=== PATIENT | female | born 1970 | race Caucasian/White ===

== ENCOUNTER 2020-06-12 05:11 | Inpatient (IN) | payer BC ==
[2020-06-12] MEDS ORDERED: ALBUTEROL HFA INHALER INHALATION STA (05:24)
[2020-06-12] MEDS ORDERED: ACETAMINOPHEN TAB 500 MG TAB PO STA (05:24)
[2020-06-12] MEDS ORDERED: DEXAMETHASONE SOD PHOSPHATE 10 MG/ML 1 ML VIAL IV STA (05:24)
[2020-06-12] MEDS ORDERED: SODIUM CHLORIDE 0.9% 1,000 ML IV STA (05:24)
[2020-06-12] MEDS ORDERED: KETOROLAC 15 MG/ML 1 ML VIAL IVP STA (05:24)
--- NOTE | 2020-06-12 05:26 | ED ---
SOB HPI - General Chief Complaint: Shortness of Breath Stated Complaint: COVID+,SOB Time Seen by Provider: 06/12/20 05:13 Source: patient, RN notes reviewed, old records reviewed Mode of arrival: wheelchair Limitations: no limitations - History of Present Illness Initial Comments: This is a 49-year-old female DF for evaluation. Patient severely short of breath arrival to the emergency department. Does have significant obesity diagnosis coronavirus last week coming with abdominal pain nausea vomiting diarrhea worsening shortness of breath exertional dyspnea. MD Complaint: shortness of breath, cough, pain with inspiration, anxiety -: week(s) Severity: moderate Severity scale (1-10): 6 Quality: aching Consistency: constant Improves With: rest Worsens With: exertion, movement Associated Symptoms: fever, cough Treatments Prior to Arrival: none - Related Data Home Medications Medication Instructions Recorded Confirmed Albuterol Inhaler [Ventolin Hfa 2 puff INHALATION RT-Q4H PRN 06/12/20 06/12/20 Inhaler] Ondansetron HCl [Zofran] 4 mg PO Q8H PRN 06/12/20 06/12/20 Previous Rx's Medication Instructions Recorded Dexamethasone [Decadron] 6 mg PO DAILY 7 Days #7 tablet 06/16/20 Allergies Allergy/AdvReac Type Severity Reaction Status Date / Time No Known Allergies Allergy Verified 06/12/20 06:52 Review of Systems ROS Statement: Those systems with pertinent positive or pertinent negative responses have been documented in the HPI. ROS Other: All systems not noted in ROS Statement are negative. Past Medical History Past Medical History: No Reported History History of Any Multi-Drug Resistant Organisms: None Reported Past Surgical History: Cholecystectomy Additional Past Surgical History / Comment(s): breast biopsy 2013 Past Psychological History: No Psychological Hx Reported Smoking Status: Never smoker Past Alcohol Use History: None Reported Past Drug Use History: None Reported - Past Family History Mother Family Medical History: Hyperlipidemia, Hypertension Father Family Medical History: Coronary Artery Disease (CAD), Myocardial Infarction ([place]) Additional Family Medical History / Comment(s): Father of a [place] at the age of 60yrs. General Exam Limitations: no limitations General appearance: anxious, in distress, obese Head exam: Present: atraumatic, normocephalic, normal inspection Eye exam: Present: normal appearance, PERRL, EOMI. Absent: scleral icterus, conjunctival injection, periorbital swelling ENT exam: Present: normal exam, mucous membranes moist Neck exam: Present: normal inspection. Absent: tenderness, meningismus, lymphadenopathy Respiratory exam: Present: normal lung sounds bilaterally. Absent: respiratory distress, wheezes, rales, rhonchi, stridor Cardiovascular Exam: Present: regular rate, normal rhythm, normal heart sounds. Absent: systolic murmur, diastolic murmur, rubs, gallop, clicks GI/Abdominal exam: Present: soft, normal bowel sounds. Absent: distended, tenderness, guarding, rebound, rigid Extremities exam: Present: normal inspection, full ROM, normal capillary refill. Absent: tenderness, pedal edema, joint swelling, calf tenderness Back exam: Present: normal inspection Neurological exam: Present: alert, oriented X3, CN II-XII intact Psychiatric exam: Present: normal affect, normal mood Skin exam: Present: warm, dry, intact, normal color. Absent: rash Course Vital Signs 06/12/20 06/12/20 06/12/20 05:19 06:40 06:41 Temperature 98.9 F Pulse Rate 91 85 Respiratory 24 20 Rate Blood Pressure 199/88 167/98 O2 Sat by Pulse 93 L 88 L 92 L Oximetry - Reevaluation(s) Reevaluation #1: Medical record is reviewed Patient symptoms are significantly improved here in the emergency department Patient family informed of results, questions answered Medical Decision Making - Medical Decision Making 49 female positive coronavirus positive hypoxia. Patient will be admitted for symptomatically therapy and treatment - Lab Data Result diagrams: 06/15/20 10:55 06/16/20 10:05 Lab Results 06/12/20 06/12/20 06/12/20 Range/Units 05:41 05:41 05:41 WBC 4.6 (3.8-10.6) k/uL RBC 4.50 (3.80-5.40) m/uL Hgb 13.3 (11.4-16.0) gm/dL Hct 38.4 (34.0-46.0) % MCV 85.3 (80.0-100.0) fL MCH 29.6 (25.0-35.0) pg MCHC 34.7 (31.0-37.0) g/dL RDW 13.2 (11.5-15.5) % Plt Count 209 (150-450) k/uL MPV 8.2 Neutrophils % 80 % Lymphocytes % 14 % Monocytes % 4 % Eosinophils % 0 % Basophils % 1 % Neutrophils # 3.7 (1.3-7.7) k/uL Lymphocytes # 0.6 L (1.0-4.8) k/uL Monocytes # 0.2 (0-1.0) k/uL Eosinophils # 0.0 (0-0.7) k/uL Basophils # 0.0 (0-0.2) k/uL PT 10.4 (9.0-12.0) sec INR 1.0 (<1.2) APTT 27.0 (22.0-30.0) sec Sodium 134 L (137-145) mmol/L Potassium 4.2 (3.5-5.1) mmol/L Chloride 98 (98-107) mmol/L Carbon Dioxide 25 (22-30) mmol/L Anion Gap 11 mmol/L BUN 9 (7-17) mg/dL Creatinine 0.69 (0.52-1.04) mg/dL Est GFR (CKD-EPI)AfAm >90 (>60 ml/min/1.73 sqM) Est GFR (CKD-EPI)NonAf >90 (>60 ml/min/1.73 sqM) Glucose 119 H (74-99) mg/dL Plasma Lactic Acid Álvaro (0.7-2.0) mmol/L Calcium 9.8 (8.4-10.2) mg/dL Magnesium 1.6 (1.6-2.3) mg/dL Total Bilirubin 0.5 (0.2-1.3) mg/dL AST 71 H (14-36) U/L ALT 46 H (4-34) U/L Alkaline Phosphatase 67 (38-126) U/L Lactate Dehydrogenase 1249 H (313-618) U/L C-Reactive Protein 75.9 H (<10.0) mg/L Total Protein 6.8 (6.3-8.2) g/dL Albumin 3.9 (3.5-5.0) g/dL 06/12/20 Range/Units 05:41 WBC (3.8-10.6) k/uL RBC (3.80-5.40) m/uL Hgb (11.4-16.0) gm/dL Hct (34.0-46.0) % MCV (80.0-100.0) fL MCH (25.0-35.0) pg MCHC (31.0-37.0) g/dL RDW (11.5-15.5) % Plt Count (150-450) k/uL MPV Neutrophils % % Lymphocytes % % Monocytes % % Eosinophils % % Basophils % % Neutrophils # (1.3-7.7) k/uL Lymphocytes # (1.0-4.8) k/uL Monocytes # (0-1.0) k/uL Eosinophils # (0-0.7) k/uL Basophils # (0-0.2) k/uL PT (9.0-12.0) sec INR (<1.2) APTT (22.0-30.0) sec Sodium (137-145) mmol/L Potassium (3.5-5.1) mmol/L Chloride (98-107) mmol/L Carbon Dioxide (22-30) mmol/L Anion Gap mmol/L BUN (7-17) mg/dL Creatinine (0.52-1.04) mg/dL Est GFR (CKD-EPI)AfAm (>60 ml/min/1.73 sqM) Est GFR (CKD-EPI)NonAf (>60 ml/min/1.73 sqM) Glucose (74-99) mg/dL Plasma Lactic Acid Álvaro 1.0 (0.7-2.0) mmol/L Calcium (8.4-10.2) mg/dL Magnesium (1.6-2.3) mg/dL Total Bilirubin (0.2-1.3) mg/dL AST (14-36) U/L ALT (4-34) U/L Alkaline Phosphatase (38-126) U/L Lactate Dehydrogenase (313-618) U/L C-Reactive Protein (<10.0) mg/L Total Protein (6.3-8.2) g/dL Albumin (3.5-5.0) g/dL - EKG Data -: EKG Interpreted by Me (EKG is sinus rhythm 85, HI 182 QRS 100 QTc 404) - Radiology Data Radiology results: report reviewed (Chest x-rays positive for covert and pneumonia), image reviewed Critical Care Time Critical Care Time: Yes Total Critical Care Time: 31 Disposition Clinical Impression: Coronavirus infection, Pneumonia due to COVID-19 virus, Hypoxia Disposition: ADMITTED IP TO THIS HOSP Condition: Fair Is patient prescribed a controlled substance at d/c from ED?: No
[2020-06-12] MEDS ORDERED: ONDANSETRON 4 MG/2 ML VIAL IVP STA (06:05)
[2020-06-12] MEDS: SODIUM CHLORIDE 0.9% 1,000 ML IV STA ×2 (06:06→09:28)
[2020-06-12 06:36] LABS: Basophils % (A) 1 %; Eosinophils % (A) 0 %; HCT 38.4 % (34.0-46.0); HGB 13.3 gm/dL (11.4-16.0); Lymphocytes # (A) 0.6 k/uL (1.0-4.8); Lymphocytes % (A) 14 %; MCH 29.6 pg (25.0-35.0); MCHC 34.7 g/dL (31.0-37.0); MCV 85.3 fL (80.0-100.0); Mean Platelet Volume 8.2; Monocytes # (A) 0.2 k/uL (0-1.0); Monocytes % (A) 4 %; Neutrophils # (A) 3.7 k/uL (1.3-7.7); Neutrophils % (A) 80 %; Platelet Count 209 k/uL (150-450); RDW 13.2 % (11.5-15.5); WBC 4.6 k/uL (3.8-10.6)
[2020-06-12] MEDS ORDERED: ONDANSETRON 4 MG/2 ML VIAL IVP PRN (06:39)
[2020-06-12] MEDS ORDERED: ACETAMINOPHEN TAB 325 MG TAB PO PRN (06:39)
[2020-06-12] MEDS ORDERED: IBUPROFEN 400 MG TAB PO PRN (06:39)
[2020-06-12] MEDS ORDERED: NALOXONE 0.4 MG/ML 1 ML VIAL IV PRN (06:39)
[2020-06-12] MEDS ORDERED: MORPHINE SULFATE 4 MG/ML SYRINGE IV PRN (06:39)
[2020-06-12] MEDS ORDERED: DEXTROSE 5%-0.45% NACL 1,000 ML IV SCH (06:45)
[2020-06-12 06:47] LABS: Prothrombin Time 10.4 sec (9.0-12.0)
[2020-06-12 06:52] LABS: ALT 46 U/L (4-34); AST 71 U/L (14-36); African American GFR (CKD) >90 (>60 ml/min/1.73 sqM); Albumin 3.9 g/dL (3.5-5.0); Alkaline Phosphatase 67 U/L (38-126); Anion Gap 11 mmol/L; Blood Urea Nitrogen 9 mg/dL (7-17); C Reactive Protein 75.9 mg/L (<10.0); Calcium 9.8 mg/dL (8.4-10.2); Carbon Dioxide 25 mmol/L (22-30); Chloride 98 mmol/L (98-107); Glucose 119 mg/dL (74-99); LDH 1249 U/L (313-618); Magnesium 1.6 mg/dL (1.6-2.3); Non-African American GFR(CKD) >90 (>60 ml/min/1.73 sqM); Potassium 4.2 mmol/L (3.5-5.1); Sodium 134 mmol/L (137-145); Total Bilirubin 0.5 mg/dL (0.2-1.3); Total Protein 6.8 g/dL (6.3-8.2)
--- NOTE | 2020-06-12 07:48 | XR ---
EXAMINATION TYPE: XR chest 1V portable DATE OF EXAM: 06/12/2020 COMPARISON: NONE HISTORY: Covid 19 pneumonia TECHNIQUE: Single frontal view of the chest is obtained. FINDINGS: Bilateral patchy airspace disease is present. No evident pneumothorax or pleural effusion. Cardiac mediastinal silhouette is within normal limits. IMPRESSION: Findings consistent with pneumonia.
[2020-06-12] MEDS: ALBUTEROL HFA INHALER INHALATION SCH ×3 (08:33→19:59)
[2020-06-12] MEDS: ENOXAPARIN 40 MG/0.4 ML SYRINGE SQ SCH (09:28)
--- NOTE | 2020-06-12 09:34 | P.CNPUL ---
History of Present Illness Consult date: 06/12/20 Reason for consult: dyspnea, pneumonia History of present illness: A 49-year-old female patient, presented to the emergency room because of shor tness of breath and cough. The patient initially developed symptoms on 06/03/2020. Noted the patient received the first dose of vaccination with Pfizer on 06/01/2020. Over the past 7 days, the patient was progressively getting worse. Her is infected and is doing well. Her 21-year-old son is also doing good. The patient is currently hypoxic and a pulse ox of 89% currently on 2 L of oxygen by nasal cannula. Chest x-ray showing bilateral pneumonia. She did recover some diarrhea. Otherwise her history is essentially negative. Labs are all within normal limits. The patient has some lymphopenia. Inflammatory markers are being ordered to be monitored. LDH currently is at 1249 and the CRP is at 45 and a d-dimer has not been checked. She is quite comfortable. No DVTs or pulmonary embolism. No chronic lung disease. Review of Systems Constitutional: Reports fatigue, Reports fever, Reports lethargy, Reports poor appetite Eyes: denies as per HPI, denies blurred vision, denies bulging eye, denies decreased vision, denies diplopia, denies discharge, denies dry eye, denies irritation, denies itching, denies pain, denies photophobia, denies loss of peripheral vision, denies loss of vision, denies tunnel vision/blind spots Ears: deny: decreased hearing, ear discharge, earache, tinnitus Ears, nose, mouth and throat: Reports as per HPI Breasts: absent: as per HPI, change in shape, gynecomastia, masses, nipple discharge, pain, skin changes, swelling Cardiovascular: Reports dyspnea on exertion Respiratory: Reports cough, Reports dyspnea Gastrointestinal: Reports as per HPI Genitourinary: Reports as per HPI Musculoskeletal: Reports as per HPI Musculoskeletal: absent: ankle pain, ankle stiffness, ankle swelling, as per HPI, elbow pain, elbow stiffness, elbow swelling, foot pain, foot stiffness, foot swelling, hand pain, hand stiffness, hand swelling, hip pain, hip stiffnes s, hip swelling, knee pain, knee stiffness, knee swelling, shoulder pain, shoulder stiffness, shoulder swelling, wrist pain, wrist stiffness, wrist swelling Integumentary: Reports as per HPI Neurological: Reports as per HPI, Reports weakness Psychiatric: Reports as per HPI Endocrine: Reports as per HPI Hematologic/Lymphatic: Reports as per HPI Allergic/Immunologic: Reports as per HPI Past Medical History Past Medical History: GERD/Reflux History of Any Multi-Drug Resistant Organisms: None Reported Past Surgical History: Cholecystectomy Additional Past Surgical History / Comment(s): R benign breast biopsy 2013 Past Anesthesia/Blood Transfusion Reactions: No Reported Reaction Past Psychological History: No Psychological Hx Reported Additional Psychological History / Comment(s): Pt resides with her spouse and son. She is independent. Smoking Status: Former smoker Past Alcohol Use History: None Reported Additional Past Alcohol Use History / Comment(s): Pt started smoking in 1985 and quit in 2014. Past Drug Use History: None Reported - Past Family History Mother Family Medical History: Hyperlipidemia, Hypertension Father Family Medical History: Coronary Artery Disease (CAD), Myocardial Infarction ([place]) Additional Family Medical History / Comment(s): Father of a [place] at the age of 60yrs. Medications and Allergies Home Medications Medication Instructions Recorded Confirmed Type Albuterol Inhaler [Ventolin Hfa 2 puff INHALATION RT-Q4H PRN 06/12/20 06/12/20 History Inhaler] Ondansetron HCl [Zofran] 4 mg PO Q8H PRN 06/12/20 06/12/20 History Allergies Allergy/AdvReac Type Severity Reaction Status Date / Time No Known Allergies Allergy Verified 06/12/20 06:52 Physical Exam Vitals: Vital Signs Temp Pulse Resp BP Pulse Ox 06/12/20 06:41 92 L 06/12/20 06:40 85 20 167/98 88 L 06/12/20 05:19 98.9 F 91 24 199/88 93 L Intake and Output 06/11/20 06/12/20 06/12/20 22:59 06:59 14:59 Other: Weight 145.15 kg Obesity with a BMI of 43, calm and comfortable Head exam was generally normal. There was no scleral icterus or corneal arcus. Mucous membranes were moist. Neck was supple and without jugular venous distension, thyromegaly, or carotid bruits. Carotids were easily palpable bilaterally. There was no adenopathy. Lungs were clear to auscultation and percussion, and with normal diaphragmatic excursion. No wheezes or rales were noted. Minimal amount of crackles can be appreciated the lung bases bilaterally. Cardiac exam revealed the PMI to be normally situated and sized. The rhythm was regular and no extrasystoles were noted during several minutes of auscultation. The first and second heart sounds were normal and physiologic splitting of the second heart sound was noted. There were no murmurs, rubs, clicks, or gallops. Abdominal exam revealed normal bowel sounds. The abdomen was soft, non-tender, and without masses, organomegaly, or appreciable enlargement of the abdominal aorta. Examination of the extremities revealed easily palpable radial, femoral and pedal pulses. There was no cyanosis, clubbing or edema. Examination of the skin revealed no evidence of significant rashes, suspicious appearing nevi or other concerning lesions. Neurologically, the patient is awake and alert and the patient does not have any focal neurological deficit. Cranial nerves are essentially intact. Results - Laboratory Findings CBC and BMP: 06/12/20 05:41 06/12/20 05:41 PT/INR, D-dimer PT 10.4 sec (9.0-12.0) 06/12/20 05:41 INR 1.0 (<1.2) 06/12/20 05:41 Abnormal lab findings: Abnormal Labs 06/12/20 06/12/20 05:41 05:41 Lymphocytes # 0.6 L Sodium 134 L Glucose 119 H AST 71 H ALT 46 H Lactate Dehydrogenase 1249 H C-Reactive Protein 75.9 H - Diagnostic Findings Chest x-ray: image reviewed Assessment and Plan Plan: 1 acute COVID 19 pneumonia. Symptoms started on 06/03/2020. Symptoms got worse over the past 7 days. The patient presented with worsening shortness of breath and cough and some hypoxemia 2 acute hypoxemic respiratory failure currently on 2 L of oxygen by nasal cannula 3 morbid obesity with a BMI of 43 4 elevated inflammatory markers secondary to above 5 lymphopenia secondary to above Plan Decadron 6 mg by mouth daily Remdesivir per protocol Lovenox 40 mg subcu daily IV fluids at 75 mL's an hour Oxygen at 2 L per minute is a cannula and titrate the flow to maintain saturation above 90% Multivitamin supplements Incentive spirometer Monitor diarrhea We'll continue to follow
[2020-06-12] MEDS: SODIUM CHLORIDE 0.9% 1,000 ML IV SCH (09:35)
[2020-06-12] MEDS: CHOLECALCIFEROL 25 MCG (1000 IU) TABLET PO SCH (09:40)
[2020-06-12] MEDS: ZINC SULFATE 220 MG CAP PO SCH (09:40)
[2020-06-12] MEDS: dexAMETHasone 2 MG TAB PO SCH (09:40)
[2020-06-12] MEDS: ASCORBIC ACID 500 MG TAB PO SCH ×2 (09:40→20:32)
[2020-06-12] MEDS ORDERED: REMDESIVIR 200 MG in SODIUM CHLORIDE 0.9% 250 ML IVPB ONE (10:00)
[2020-06-12 10:20] LABS: C Reactive Protein 76.7 mg/L (<10.0)
[2020-06-12 14:25] VITALS: BMI 43.4
--- NOTE | 2020-06-12 22:45 | P.HPIM ---
History of Present Illness H&P Date: 06/12/20 Chief Complaint: Shortness of breath Patient is a 49-year-old female with a long history of GERD and previous chest smoking presents to ER with complaints of shortness of breath. Patient states that she has been having symptoms since 05/31/2020. She received first dose of Pf izer COVID-19 vaccine on 06/01/2020. Patient came to ER due to worsening symptoms for the past 1 week. Patient states that her was infected with COVID-19 and is having mild symptoms. On admission patient was hypoxic at 88% on room air. Currently requiring 2 L oxygen via nasal cannula. Patient has been afebrile. Denied any complaints of chest pain. Patient states that she did have nausea and episodes of vomiting and diarrhea few days ago. No headache or dizziness or lightheadedness. Chest x-ray showed findings consistent with pneumonia. Laboratory data showed D-dimer 0.57, AST 71 ALT 46 LDH 1249, CRP 75.9 Review of Systems Constitutional: Patient denies any fever or chills . +generalized weakness and Malaise Abdomen: Patient does have nausea vomiting and diarrhea and no abdominal pain. Cardiovascular: Patient denies any chest pain . + short of breath no palpitations. Respiratory: patient denied any cough or sputum production. + shortness of breath Neurologic: Patient denied any numbness or tingling headache. Musculoskeletal: Patient denies any complaints of joint swelling or deformity. Skin: Negative Psychiatric: Negative Endocrine: No heat or cold intolerance. No recent weight gain. Genitourinary: No dysuria or hematuria. All other 14 point ROS negative except the above Past Medical History Past Medical History: GERD/Reflux Additional Past Medical History / Comment(s): Pt tested covid + on 06/05/20 at [facility] de[facility]. History of Any Multi-Drug Resistant Organisms: None Reported Past Surgical History: Cholecystectomy Additional Past Surgical History / Comment(s): R benign breast biopsy 2013 Past Anesthesia/Blood Transfusion Reactions: No Reported Reaction Past Psychological History: No Psychological Hx Reported Additional Psychological History / Comment(s): Pt resides with her spouse and son. She is independent. Smoking Status: Former smoker Past Alcohol Use History: None Reported Additional Past Alcohol Use History / Comment(s): Pt started smoking in 1985 and quit in 2014. Past Drug Use History: None Reported - Past Family History Mother Family Medical History: Hyperlipidemia, Hypertension Father Family Medical History: Coronary Artery Disease (CAD), Myocardial Infarction ([place]) Additional Family Medical History / Comment(s): Father of a [place] at the age of 60yrs. Medications and Allergies Home Medications Medication Instructions Recorded Confirmed Type Albuterol Inhaler [Ventolin Hfa 2 puff INHALATION RT-Q4H PRN 06/12/20 06/12/20 History Inhaler] Ondansetron HCl [Zofran] 4 mg PO Q8H PRN 06/12/20 06/12/20 History Allergies Allergy/AdvReac Type Severity Reaction Status Date / Time No Known Allergies Allergy Verified 06/12/20 06:52 Physical Exam Vitals: Vital Signs Temp Pulse Resp BP Pulse Ox 06/12/20 06:41 92 L 06/12/20 06:40 85 20 167/98 88 L 06/12/20 05:19 98.9 F 91 24 199/88 93 L Intake and Output 06/11/20 06/12/20 06/12/20 22:59 06:59 14:59 Other: Weight 145.15 kg 145.15 kg PHYSICAL EXAMINATION: Patient is lying in the bed comfortably, no acute distress, awake alert and oriented.. HEENT: Normocephalic. Neck is supple. Pupils reactive. Nostrils clear. Oral cavity is moist. Ears reveal no drainage. Neck reveals no JVD, carotid bruits, or thyromegaly. CHEST EXAMINATION: Trachea is central. Symmetrical expansion. Lung esparza clear to auscultation and percussion. CARDIAC: Normal S1, S2 with no gallops. No murmurs ABDOMEN: Soft. Bowel sounds normal. No organomegaly. No abdominal bruits. Extremities: reveal no edema. No clubbing or cyanosis Neurologically awake, alert, oriented x3 with well-coordinated movements. No focal deficits noted Skin: No rash or skin lesions. Psychiatric: Coperative. Nonsuicidal Musculoskeletal: No joint swelling or deformity. Normal range of motion. Results CBC & Chem 7: 06/12/20 05:41 06/12/20 05:41 Labs: Abnormal Lab Results - Last 24 Hours (Table) 06/12/20 06/12/20 Range/Units 05:41 05:41 Lymphocytes # 0.6 L (1.0-4.8) k/uL Sodium 134 L (137-145) mmol/L Glucose 119 H (74-99) mg/dL AST 71 H (14-36) U/L ALT 46 H (4-34) U/L Lactate Dehydrogenase 1249 H (313-618) U/L C-Reactive Protein 75.9 H (<10.0) mg/L Thrombosis Risk Factor Assmnt - DVT/VTE Prophylaxis DVT/VTE Prophylaxis: Pharmacologic Prophylaxis ordered - Choose All That Apply Any of the Below Risk Factors Present?: Yes Each Factor Represents 1 point: Age 41-60 years, Obesity (BMI >25), Serious lung disease incl. pneumonia (< 1month) Other Risk Factors: No Other congenital or acquired thrombophilia - If yes, enter type in comment: No Thrombosis Risk Factor Assessment Total Risk Factor Score: 3 Thrombosis Risk Factor Assessment Level: Moderate Risk Assessment and Plan Assessment: Acute hypoxic respiratory failure requiring 2 L oxygen via nasal cannula Acute COVID-19 pneumonia GERD Elevated inflammatory markers and lymphopenia secondary to COVID-19 pneumonia DVT prophylaxis with Lovenox subcu Plan: Patient will be continued on oxygen supplementation, dexamethasone 6 mg daily and Lovenox 40 mg subcu daily. Patient has been having symptoms for the past 7 days. Was started on remdesivir course. Pulmonary is on board. Continue with multivitamins and follow-up closely. Titrate down FiO2 to room air. Time with Patient: Greater than 30
[2020-06-13] MEDS: ALBUTEROL HFA INHALER INHALATION SCH ×5 (03:07→20:12)
[2020-06-13] MEDS: SODIUM CHLORIDE 0.9% 1,000 ML IV SCH ×3 (08:30→12:42)
--- NOTE | 2020-06-13 08:31 | XR ---
EXAMINATION TYPE: XR chest 1V portable DATE OF EXAM: 06/13/2020 CLINICAL HISTORY: Difficulty breathing and covid-19 progress study. TECHNIQUE: Single AP portable upright view of the chest is obtained. COMPARISON: Chest x-ray from one day earlier FINDINGS: Worsening bilateral multifocal opacities. Cardiac silhouette size is stable and within nor mal limits. Osseous structures are intact. IMPRESSION: Worsening bilateral multifocal opacities consistent with worsening covid-19 infection.
[2020-06-13 08:33] LABS: African American GFR (CKD) >90 (>60 ml/min/1.73 sqM); Anion Gap 6 mmol/L; Blood Urea Nitrogen 14 mg/dL (7-17); C Reactive Protein 61.2 mg/L (<10.0); Calcium 8.9 mg/dL (8.4-10.2); Carbon Dioxide 27 mmol/L (22-30); Chloride 105 mmol/L (98-107); Glucose 147 mg/dL (74-99); LDH 1143 U/L (313-618); Non-African American GFR(CKD) >90 (>60 ml/min/1.73 sqM); Potassium 4.5 mmol/L (3.5-5.1); Sodium 138 mmol/L (137-145)
[2020-06-13] MEDS: ENOXAPARIN 40 MG/0.4 ML SYRINGE SQ SCH (08:38)
[2020-06-13] MEDS: CHOLECALCIFEROL 25 MCG (1000 IU) TABLET PO SCH (08:38)
[2020-06-13] MEDS: ASCORBIC ACID 500 MG TAB PO SCH ×2 (08:38→20:59)
[2020-06-13] MEDS: dexAMETHasone 2 MG TAB PO SCH (08:38)
[2020-06-13] MEDS: ZINC SULFATE 220 MG CAP PO SCH (08:39)
--- NOTE | 2020-06-13 10:38 | P.PN ---
Subjective Progress Note Date: 06/13/20 A 49-year-old female patient, presented to the emergency room because of shortness of breath and cough. The patient initially developed symptoms on 06/03/2020. Noted the patient received the first dose of vaccination with [employer] on 06/01/2020. Over the past 7 days, the patient was progressively getti ng worse. Her is infected and is doing well. Her 21-year-old son is also doing good. The patient is currently hypoxic and a pulse ox of 89% currently on 2 L of oxygen by nasal cannula. Chest x-ray showing bilateral pneumonia. She did recover some diarrhea. Otherwise her history is essentially negative. Labs are all within normal limits. The patient has some lymphopenia. Inflammatory markers are being ordered to be monitored. LDH currently is at 1249 and the CRP is at 45 and a d-dimer has not been checked. She is quite comfortable. No DVTs or pulmonary embolism. No chronic lung disease. 06/13/2020 the patient is being seen for a follow-up. The patient is currently on Decadron and Remdesivir #2. No complaints. D-dimer is at 0.4, LDH level is 1143, CRP is down to 61. She is afebrile. She remains on 2 liters oxygen by nasal cannula. Nevertheless, the chest x-ray showing interval progression with worsening in the peripheral infiltrates on the right lung and some worsening of the left also. She has cough and she denies having any worsening in her breathing. Objective - Vital Signs Vital signs: Vital Signs Temp 98.6 F 06/13/20 07:33 Pulse 69 06/13/20 08:00 Resp 18 06/13/20 08:00 BP 138/70 06/13/20 07:33 Pulse Ox 90 L 06/13/20 07:33 Intake & Output 06/12/20 06/13/20 06/13/20 18:59 06:59 18:59 Intake Total 850 1400 240 Balance 850 1400 240 Weight 145.15 kg Intake: Intake, IV Titration 850 900 Amount Remdesivir 200 mg In 250 Sodium Chloride 0.9% 250 ml @ 250 mls/hr IVPB ONCE ONE Rx#:[id number] Sodium Chloride 0.9% 1, 600 900 000 ml @ 75 mls/hr IV . [id number] [facility] Rx#:[id number] Oral 500 240 Other: Voiding Method Toilet # Voids 4 3 1 - Exam Obesity with a BMI of 43, calm and comfortable Head exam was generally normal. There was no scleral icterus or corneal arcus. Mucous membranes were moist. Neck was supple and without jugular venous distension, thyromegaly, or carotid bruits. Carotids were easily palpable bilaterally. There was no adenopathy. Lungs were clear to auscultation and percussion, and with normal diaphragmatic excursion. No wheezes or rales were noted. Minimal amount of crackles can be appreciated the lung bases bilaterally. Cardiac exam revealed the PMI to be normally situated and sized. The rhythm was regular and no extrasystoles were noted during several minutes of auscultation. The first and second heart sounds were normal and physiologic splitting of the second heart sound was noted. There were no murmurs, rubs, clicks, or gallops. Abdominal exam revealed normal bowel sounds. The abdomen was soft, non-tender, and without masses, organomegaly, or appreciable enlargement of the abdominal aorta. Examination of the extremities revealed easily palpable radial, femoral and pedal pulses. There was no cyanosis, clubbing or edema. Examination of the skin revealed no evidence of significant rashes, suspicious appearing nevi or other concerning lesions. Neurologically, the patient is awake and alert and the patient does not have any focal neurological deficit. Cranial nerves are essentially intact. - Labs CBC & Chem 7: 06/12/20 05:41 06/13/20 07:21 Labs: Abnormal Lab Results - Last 24 Hours (Table) 06/13/20 Range/Units 07:21 Glucose 147 H (74-99) mg/dL Lactate Dehydrogenase 1143 H (313-618) U/L C-Reactive Protein 61.2 H (<10.0) mg/L Assessment and Plan Plan: 1 acute COVID 19 pneumonia. Symptoms started on 06/03/2020. Symptoms got worse over the past 7 days. The patient presented with worsening shortness of breath and cough and some hypoxemia. The patient is currently on a combination of Decadron and Remdesivir day #2 and the patient is showing some interval worsening in her chest x-ray findings. Clinically stable on 2 L of oxygen by nasal cannula. 2 acute hypoxemic respiratory failure currently on 2 L of oxygen by nasal can nula 3 morbid obesity with a BMI of 43 4 elevated inflammatory markers secondary to above 5 lymphopenia secondary to above Plan Decadron 6 mg by mouth daily Remdesivir per protocol day #2 Give the patient unit of convalescent plasma There is interval worsening in the chest x-ray findings. I'm going to repeat a chest x-ray tomorrow Lovenox 40 mg subcu daily IV fluids at 75 mL's an hour Oxygen at 2 L per minute is a cannula and titrate the flow to maintain saturation above 90% Multivitamin supplements Incentive spirometer Monitor diarrhea We'll continue to follow
[2020-06-13] MEDS: REMDESIVIR 100 MG in SODIUM CHLORIDE 0.9% 250 ML IVPB SCH (11:17)
--- NOTE | 2020-06-14 00:17 | P.PN ---
Subjective Progress Note Date: 06/13/20 Principal diagnosis: Acute hypoxic respiratory failure requiring 2 L oxygen via nasal cannula Acute COVID-19 pneumonia Patient is a 49-year-old female with a long history of GERD and previous chest smoking presents to ER with complaints of shortness of breath. Patient states that she has been having symptoms since 05/31/2020. She received first dose of [employer] COVID-19 vaccine on 06/01/2020. Patient came to ER due to worsening symptoms for the past 1 week. Patient states that her was infected with COVID-19 and is having mild symptoms. On admission patient was hypoxic at 88% on room air. Currently requiring 2 L oxygen via nasal cannula. Patient has been afebrile. Denied any complaints of chest pain. Patient states that she did have nausea and episodes of vomiting and diarrhea few days ago. No headache or dizziness or lightheadedness. Chest x-ray showed findings consistent with pneumonia. Laboratory data showed D-dimer 0.57, AST 71 ALT 46 LDH 1249, CRP 75.9 06/13/2020 Patient is currently lying in the bed comfortably., No complaints of chest pain. Shortness of breath with ambulation. Denies any fever or chills. No nausea vomiting. Diarrhea improved. Patient is being continued on remdesivir day 2, dexamethasone and multivitamins and Lovenox. Laboratory data showed D-dimer level is 0.43 and LDH 1143 and CRP 61.2. Chest x-ray showed worsening bilateral multifocal opacities consistent with worsening COVID-19 infection. Will reduce IV fluids to 20 cc/h. Pulmonary is on board. Current medications reviewed. Objective - Vital Signs Vital signs: Vital Signs Temp 97.8 F 06/13/20 16:52 Pulse 71 06/13/20 16:52 Resp 18 06/13/20 16:52 BP 118/67 06/13/20 16:52 Pulse Ox 92 L 06/13/20 16:52 Intake & Output 06/13/20 06/13/20 06/14/20 06:59 18:59 06:59 Intake Total 1400 1010 Balance 1400 1010 Intake: Intake, IV Titration 900 Amount Sodium Chloride 0.9% 1, 900 000 ml @ 75 mls/hr IV . [id number] [facility] Rx#:[id number] Oral 500 720 Blood Product 290 Ffp Convalescent Plasma 290 Cpd Unit [id number] Other: Voiding Method Toilet # Voids 3 1 - Exam PHYSICAL EXAMINATION: Patient is lying in the bed comfortably, no acute distress, awake alert and oriented.. HEENT: Normocephalic. Neck is supple. Pupils reactive. Nostrils clear. Oral cavity is moist. Ears reveal no drainage. Neck reveals no JVD, carotid bruits, or thyromegaly. CHEST EXAMINATION: Trachea is central. Symmetrical expansion. Lung esparza clear to auscultation and percussion. CARDIAC: Normal S1, S2 with no gallops. No murmurs ABDOMEN: Soft. Bowel sounds normal. No organomegaly. No abdominal bruits. Extremities: reveal no edema. No clubbing or cyanosis Neurologically awake, alert, oriented x3 with well-coordinated movements. No focal deficits noted Skin: No rash or skin lesions. Psychiatric: Coperative. Nonsuicidal Musculoskeletal: No joint swelling or deformity. Normal range of motion. - Labs CBC & Chem 7: 06/12/20 05:41 06/13/20 07:21 Labs: Abnormal Lab Results - Last 24 Hours (Table) 06/13/20 Range/Units 07:21 Glucose 147 H (74-99) mg/dL Lactate Dehydrogenase 1143 H (313-618) U/L C-Reactive Protein 61.2 H (<10.0) mg/L Assessment and Plan Assessment: Acute hypoxic respiratory failure requiring 2 L oxygen via nasal cannula Acute COVID-19 pneumonia GERD Elevated inflammatory markers and lymphopenia secondary to COVID-19 pneumonia DVT prophylaxis with Lovenox subcu Plan: Patient will be continued on oxygen supplementation, dexamethasone 6 mg daily and Lovenox 40 mg subcu daily. Patient has been having symptoms for the past 7 days. Was started on remdesivir course. Pulmonary is on board. Continue with multivitamins and follow-up closely. Titrate down FiO2 to room air. Time with Patient: Greater than 30
--- NOTE | 2020-06-14 08:02 | XR ---
EXAMINATION TYPE: XR chest 1V portable DATE OF EXAM: 06/14/2020 CLINICAL HISTORY: Difficulty breathing progress study. TECHNIQUE: Single AP portable upright view of the chest is obtained. COMPARISON: Chest x-ray from one and 2 days earlier FINDINGS: Persistent bilateral multifocal opacities. Continued interval progression with more conflu ent appearance in the central left upper to midlung on current study. Cardiac silhouette size is stab le and upper limits of normal. Osseous structures are intact. IMPRESSION: Continued Worsening bilateral multifocal opacities consistent with covid-19 infection pr ogression.
[2020-06-14] MEDS: ALBUTEROL HFA INHALER INHALATION SCH ×3 (08:05→20:39)
[2020-06-14] MEDS: dexAMETHasone 2 MG TAB PO SCH (09:24)
[2020-06-14] MEDS: ASCORBIC ACID 500 MG TAB PO SCH ×2 (09:24→22:00)
[2020-06-14] MEDS: ENOXAPARIN 40 MG/0.4 ML SYRINGE SQ SCH (09:24)
[2020-06-14] MEDS: CHOLECALCIFEROL 25 MCG (1000 IU) TABLET PO SCH (09:24)
[2020-06-14] MEDS: ZINC SULFATE 220 MG CAP PO SCH (09:24)
[2020-06-14] MEDS: REMDESIVIR 100 MG in SODIUM CHLORIDE 0.9% 250 ML IVPB SCH (09:25)
--- NOTE | 2020-06-14 10:10 | P.PN ---
Subjective Progress Note Date: 06/14/20 A 49-year-old female patient, presented to the emergency room because of shortness of breath and cough. The patient initially developed symptoms on 06/03/2020. Noted the patient received the first dose of vaccination with Pfizer on 06/01/2020. Over the past 7 days, the patient was progressively getti ng worse. Her is infected and is doing well. Her 21-year-old son is also doing good. The patient is currently hypoxic and a pulse ox of 89% currently on 2 L of oxygen by nasal cannula. Chest x-ray showing bilateral pneumonia. She did recover some diarrhea. Otherwise her history is essentially negative. Labs are all within normal limits. The patient has some lymphopenia. Inflammatory markers are being ordered to be monitored. LDH currently is at 1249 and the CRP is at 45 and a d-dimer has not been checked. She is quite comfortable. No DVTs or pulmonary embolism. No chronic lung disease. 06/13/2020 the patient is being seen for a follow-up. The patient is currently on Decadron and Remdesivir #2. No complaints. D-dimer is at 0.4, LDH level is 1143, CRP is down to 61. She is afebrile. She remains on 2 liters oxygen by nasal cannula. Nevertheless, the chest x-ray showing interval progression with worsening in the peripheral infiltrates on the right lung and some worsening of the left also. She has cough and she denies having any worsening in her breathing. On 4 07/14/2020, the patient remains on 2 L of oxygen by nasal cannula. Doing essentially the same as yesterday. She is on 2 L of oxygen by nasal cannula and the lowest pulse ox is been 87-88%. Her inflammatory markers from today shows a d-dimer of 0.4, LDH is still elevated at 1143 and the CRP is also at 61. No fever. No chills. Continues to have cough. Using incentive spirometer. She is on Decadron and she is also on day #3 of Remdesivir. Clinically she is feeling better and she feels that her breathing is improved compared to yesterday. Objective - Vital Signs Vital signs: Vital Signs Temp 98.1 F 06/14/20 08:00 Pulse 63 06/14/20 08:00 Resp 16 06/14/20 08:00 BP 148/74 06/14/20 08:00 Pulse Ox 88 L 06/14/20 08:05 Intake & Output 06/13/20 06/14/20 06/14/20 18:59 06:59 18:59 Intake Total 1010 400 Balance 1010 400 Intake: Oral 720 400 Blood Product 290 Ffp Convalescent Plasma 290 Cpd Unit [id number] Other: Voiding Method Toilet # Voids 1 2 - Exam Obesity with a BMI of 43, calm and comfortable Head exam was generally normal. There was no scleral icterus or corneal arcus. Mucous membranes were moist. Neck was supple and without jugular venous distension, thyromegaly, or carotid bruits. Carotids were easily palpable bilaterally. There was no adenopathy. Lungs were clear to auscultation and percussion, and with normal diaphragmatic excursion. No wheezes or rales were noted. Minimal amount of crackles can be appreciated the lung bases bilaterally. Cardiac exam revealed the PMI to be normally situated and sized. The rhythm was regular and no extrasystoles were noted during several minutes of auscultation. The first and second heart sounds were normal and physiologic splitting of the second heart sound was noted. There were no murmurs, rubs, clicks, or gallops. Abdominal exam revealed normal bowel sounds. The abdomen was soft, non-tender, and without masses, organomegaly, or appreciable enlargement of the abdominal aorta. Examination of the extremities revealed easily palpable radial, femoral and pedal pulses. There was no cyanosis, clubbing or edema. Examination of the skin revealed no evidence of significant rashes, suspicious appearing nevi or other concerning lesions. Neurologically, the patient is awake and alert and the patient does not have any focal neurological deficit. Cranial nerves are essentially intact. - Labs CBC & Chem 7: 06/12/20 05:41 06/13/20 07:21 Assessment and Plan Plan: 1 acute COVID 19 pneumonia. Symptoms started on 06/03/2020. Symptoms got worse over the past 7 days. The patient presented with worsening shortness of breath and cough and some hypoxemia. The patient is currently on a combination of Decadron and Remdesivir day #3 and the patient is showing some interval worsening in her chest x-ray findings. Clinically stable on 2 L of oxygen by nasal cannula. The patient also received a unit of convalescent plasma. Her chest x-ray still stable and the patient has diffuse mild bilateral pulmonary infiltrates, findings are stable compared to yesterday. Clinically however, the patient is feeling better. 2 acute hypoxemic respiratory failure currently on 2 L of oxygen by nasal cannula 3 morbid obesity with a BMI of 43 4 elevated inflammatory markers secondary to above 5 lymphopenia secondary to above Plan Decadron 6 mg by mouth daily Remdesivir per protocol day #3 Give the patient unit of convalescent plasma The repeat chest x-ray showing diffuse bilateral pulmonary infiltrates, essentially stable compared to yesterday Lovenox 40 mg subcu daily IV fluids at KVO Oxygen at 2 L per minute is a cannula and titrate the flow to maintain saturation above 90% Multivitamin supplements Incentive spirometer Monitor diarrhea and this has subsided. We'll continue to follow
[2020-06-14] MEDS: SODIUM CHLORIDE 0.9% 1,000 ML IV SCH (11:01)
[2020-06-14 12:14] LABS: C Reactive Protein 30.6 mg/L (<10.0)
--- NOTE | 2020-06-14 20:33 | P.PN ---
Subjective Progress Note Date: 06/14/20 Principal diagnosis: Acute hypoxic respiratory failure requiring 2 L oxygen via nasal cannula Acute COVID-19 pneumonia Patient is a 49-year-old female with a long history of GERD and previous chest smoking presents to ER with complaints of shortness of breath. Patient states that she has been having symptoms since 05/31/2020. She received first dose of [employer] COVID-19 vaccine on 06/01/2020. Patient came to ER due to worsening symptoms for the past 1 week. Patient states that her was infected with COVID-19 and is having mild symptoms. On admission patient was hypoxic at 88% on room air. Currently requiring 2 L oxygen via nasal cannula. Patient has been afebrile. Denied any complaints of chest pain. Patient states that she did have nausea and episodes of vomiting and diarrhea few days ago. No headache or dizziness or lightheadedness. Chest x-ray showed findings consistent with pneumonia. Laboratory data showed D-dimer 0.57, AST 71 ALT 46 LDH 1249, CRP 75.9 06/13/2020 Patient is currently lying in the bed comfortably., No complaints of chest pain. Shortness of breath with ambulation. Denies any fever or chills. No nausea vomiting. Diarrhea improved. Patient is being continued on remdesivir day 2, dexamethasone and multivitamins and Lovenox. Laboratory data showed D-dimer level is 0.43 and LDH 1143 and CRP 61.2. Chest x-ray showed worsening bilateral multifocal opacities consistent with worsening COVID-19 infection. Will reduce IV fluids to 20 cc/h. Pulmonary is on board. 06/14/2020 Patient is currently sitting in the chair comfortably. Patient states that her breathing is better today. Currently on oxygen at 2 L via nasal cannula and saturating at 88 to 92%. Laboratory data showed D-dimer is 0.58 and LDH 1362 and CRP 30.6 trending down. Patient is being continued on remdesivir day 3 and also on Decadron. Continued on multivitamins. Patient is tolerating oral diet. IV fluids at decreased rate. Current medications reviewed. Objective - Vital Signs Vital signs: Vital Signs Temp 98.2 F 06/14/20 15:27 Pulse 72 06/14/20 15:27 Resp 16 06/14/20 15:27 BP 141/79 06/14/20 15:27 Pulse Ox 92 L 04/15/21 15:27 Intake & Output 06/13/20 06/14/20 06/14/20 18:59 06:59 18:59 Intake Total 1010 400 Balance 1010 400 Intake: Oral 720 400 Blood Product 290 Ffp Convalescent Plasma 290 Cpd Unit [id number] Other: Voiding Method Toilet # Voids 1 2 - Exam PHYSICAL EXAMINATION: Patient is lying in the bed comfortably, no acute distress, awake alert and oriented.. HEENT: Normocephalic. Neck is supple. Pupils reactive. Nostrils clear. Oral cavity is moist. Ears reveal no drainage. Neck reveals no JVD, carotid bruits, or thyromegaly. CHEST EXAMINATION: Trachea is central. Symmetrical expansion. Lung esparza clear to auscultation and percussion. CARDIAC: Normal S1, S2 with no gallops. No murmurs ABDOMEN: Soft. Bowel sounds normal. No organomegaly. No abdominal bruits. Extremities: reveal no edema. No clubbing or cyanosis Neurologically awake, alert, oriented x3 with well-coordinated movements. No focal deficits noted Skin: No rash or skin lesions. Psychiatric: Coperative. Nonsuicidal Musculoskeletal: No joint swelling or deformity. Normal range of motion. - Labs CBC & Chem 7: 06/12/20 05:41 06/13/20 07:21 Labs: Abnormal Lab Results - Last 24 Hours (Table) 06/14/20 Range/Units 09:19 Lactate Dehydrogenase 1362 H (313-618) U/L C-Reactive Protein 30.6 H (<10.0) mg/L Assessment and Plan Assessment: Acute hypoxic respiratory failure requiring 2 L oxygen via nasal cannula Acute COVID-19 pneumonia GERD Elevated inflammatory markers and lymphopenia secondary to COVID-19 pneumonia DVT prophylaxis with Lovenox subcu Plan: Patient will be continued on oxygen supplementation, dexamethasone 6 mg daily and Lovenox 40 mg subcu daily. Patient has been having symptoms for the past 7 days. c/w remdesivir course. Pulmonary is on board. Continue with multivitamins and follow-up closely. Titrate down FiO2 to room air. Time with Patient: Greater than 30
[2020-06-15] MEDS: dexAMETHasone 2 MG TAB PO SCH (08:26)
[2020-06-15] MEDS: ZINC SULFATE 220 MG CAP PO SCH (08:26)
[2020-06-15] MEDS: CHOLECALCIFEROL 25 MCG (1000 IU) TABLET PO SCH (08:26)
[2020-06-15] MEDS: ASCORBIC ACID 500 MG TAB PO SCH ×2 (08:27→21:00)
[2020-06-15] MEDS: ALBUTEROL HFA INHALER INHALATION SCH ×3 (08:58→21:20)
[2020-06-15] MEDS: REMDESIVIR 100 MG in SODIUM CHLORIDE 0.9% 250 ML IVPB SCH (10:09)
[2020-06-15] MEDS: ENOXAPARIN 40 MG/0.4 ML SYRINGE SQ SCH (10:10)
--- NOTE | 2020-06-15 11:23 | P.PN ---
Subjective Progress Note Date: 06/15/20 A 49-year-old female patient, presented to the emergency room because of shortness of breath and cough. The patient initially developed symptoms on 06/03/2020. Noted the patient received the first dose of vaccination with Pfizer on 06/01/2020. Over the past 7 days, the patient was progressively getting worse. Her is infected and is doing well. Her 21-year-old son is also doing good. The patient is currently hypoxic and a pulse ox of 89% currently on 2 L of oxygen by nasal cannula. Chest x-ray showing bilateral pneumonia. She did recover some diarrhea. Otherwise her history is essentially negative. Labs are all within normal limits. The patient has some lymphopenia. Inflammatory markers are being ordered to be monitored. LDH currently is at 1249 and the CRP is at 45 and a d-dimer has not been checked. She is quite comfortable. No DVTs or pulmonary embolism. No chronic lung disease. 06/13/2020 the patient is being seen for a follow-up. The patient is currently on Decadron and Remdesivir #2. No complaints. D-dimer is at 0.4, LDH level is 1143, CRP is down to 61. She is afebrile. She remains on 2 liters oxygen by nasal cannula. Nevertheless, the chest x-ray showing interval progression with worsening in the peripheral infiltrates on the right lung and some worsening of the left also. She has cough and she denies having any worsening in her breathing. On 07/14/2020, the patient remains on 2 L of oxygen by nasal cannula. Doing essentially the same as yesterday. She is on 2 L of oxygen by nasal cannula and the lowest pulse ox is been 87-88%. Her inflammatory markers from today shows a d-dimer of 0.4, LDH is still elevated at 1143 and the CRP is also at 61. No fever. No chills. Continues to have cough. Using incentive spirometer. She is on Decadron and she is also on day #3 of Remdesivir. Clinically she is feeling better and she feels that her breathing is improved compared to yesterday. On 06/15/2020 patient seen in follow-up on observation unit, today is day 4 of Remdesivir treatment, today patient is on 4 L pulse ox of 91-94%, attempt to wean it down to 2 L her saturation down to 88-89%, patient still has exertional dyspnea, but she's been able to get up to the bathroom and tolerated activity fairly well, no new chest x-ray, today's lab work has been reviewed in inflammatory markers as follows, with LDH of 1362, and CRP of 30.6, d-dimer today is 0.58 on today's labs, yesterday chest x-ray showed bilateral airspace disease. Vital signs have been stable, patient has been afebrile, with chest discomfort, cough has subsided, patient is requesting to go home today but in view of increasing oxygen requirement patient was recommended to stay and complete her treatment to which she is agreeable Objective - Vital Signs Vital signs: Vital Signs Temp 98.1 F 06/15/20 08:00 Pulse 71 06/15/20 08:00 Resp 16 06/15/20 08:00 BP 135/76 06/15/20 08:00 Pulse Ox 91 L 06/15/20 08:00 Intake & Output 06/14/20 06/15/20 06/15/20 18:59 06:59 18:59 Intake Total 500 650 Balance 500 650 Intake: Oral 500 650 Other: # Voids 1 3 - Exam GENERAL EXAM: Alert, comfortable, morbidly obese 49-year-old female on 4 L of oxygen and the pulse ox of 92-94% comfortable in no apparent distress. HEAD: Normocephalic/atraumatic. EYES: Normal reaction of pupils, equal size. Conjunctiva pink, sclera white. NOSE: Clear with pink turbinates. THROAT: No erythema or exudates. NECK: No masses, no JVD, no thyroid enlargement, no adenopathy. CHEST: No chest wall deformity. Symmetrical expansion. LUNGS: Equal air entry with bilateral crackles CVS: Regular rate and rhythm, normal S1 and S2, no gallops, no murmurs, no rubs ABDOMEN: Soft, nontender. No hepatosplenomegaly, normal bowel sounds, no guarding or rigidity. EXTREMITIES: No clubbing, no edema, no cyanosis, 2+ pulses and upper and lower extremities. MUSCULOSKELETAL: Muscle strength and tone normal. SPINE: No scoliosis or deformity SKIN: No rashes CENTRAL NERVOUS SYSTEM: Alert and oriented -3. No focal deficits, tone is normal in all 4 extremities. PSYCHIATRIC: Alert and oriented -3. Appropriate affect. Intact judgment and insight. - Labs CBC & Chem 7: 06/12/20 05:41 06/13/20 07:21 Labs: Abnormal Lab Results - Last 24 Hours (Table) 06/14/20 Range/Units 09:19 Lactate Dehydrogenase 1362 H (313-618) U/L C-Reactive Protein 30.6 H (<10.0) mg/L Assessment and Plan Plan: 1 acute COVID 19 pneumonia. Symptoms started on 06/03/2020. Symptoms got worse over the past 7 days. The patient presented with worsening shortness of breath and cough and some hypoxemia. The patient is currently on a combination of Decadron and Remdesivir day #3 and the patient is showing some interval worseni ng in her chest x-ray findings. Clinically stable on 2 L of oxygen by nasal cannula. The patient also received a unit of convalescent plasma. Her chest x- ray still stable and the patient has diffuse mild bilateral pulmonary infiltrates, findings are stable compared to yesterday. Clinically however, the patient is feeling better. 2 acute hypoxemic respiratory failure currently on 2 L of oxygen by nasal cannula 3 morbid obesity with a BMI of 43 4 elevated inflammatory markers secondary to above 5 lymphopenia secondary to above Plan: Oxygen requirement has increased to 4 L on today's exam, no acute distress, recommend the patient to stay another day and complete her Remdesivir treatment, we'll obtain follow-up chest x-ray in inflammatory markers, continue for worsening dyspnea or hypoxia. Add Melatonin and Ambien to help her sleep at night I performed a history & physical examination of the patient and discussed their management with my nurse practitioner, Ashley Sheridan. I reviewed the nurse practitioner's note and agree with the documented findings and plan of care. Lung sounds are positive for diffuse wheezes throughout the lung esparza. The findings and the impression was discussed with the patient. I attest to the documentation by the nurse practitioner. Time with Patient: Less than 30
[2020-06-15 12:27] LABS: Basophils % (A) 1 %; Eosinophils % (A) 0 %; HCT 38.3 % (34.0-46.0); HGB 13.2 gm/dL (11.4-16.0); Lymphocytes # (A) 0.7 k/uL (1.0-4.8); Lymphocytes % (A) 8 %; MCH 30.2 pg (25.0-35.0); MCHC 34.6 g/dL (31.0-37.0); MCV 87.3 fL (80.0-100.0); Mean Platelet Volume 8.8; Monocytes # (A) 0.5 k/uL (0-1.0); Monocytes % (A) 5 %; Neutrophils # (A) 7.2 k/uL (1.3-7.7); Neutrophils % (A) 84 %; Platelet Count 299 k/uL (150-450); RBC 4.38 m/uL (3.80-5.40); RDW 13.4 % (11.5-15.5); WBC 8.6 k/uL (3.8-10.6)
[2020-06-15 12:28] LABS: African American GFR (CKD) >90 (>60 ml/min/1.73 sqM); Anion Gap 6 mmol/L; Blood Urea Nitrogen 15 mg/dL (7-17); Calcium 8.9 mg/dL (8.4-10.2); Carbon Dioxide 27 mmol/L (22-30); Chloride 104 mmol/L (98-107); Glucose 138 mg/dL (74-99); LDH 1549 U/L (313-618); Non-African American GFR(CKD) >90 (>60 ml/min/1.73 sqM); Potassium 4.4 mmol/L (3.5-5.1); Sodium 137 mmol/L (137-145)
[2020-06-15] MEDS: SODIUM CHLORIDE 0.9% 1,000 ML IV SCH (13:21)
[2020-06-15 14:15] LABS: C Reactive Protein 2.1 mg/dL (<1.0)
[2020-06-15] MEDS ORDERED: ZOLPIDEM 5 MG TAB PO SCH (21:00)
[2020-06-15] MEDS ORDERED: MELATONIN 3 MG TABLET PO SCH (21:00)
--- NOTE | 2020-06-15 21:26 | P.PN ---
Subjective Progress Note Date: 06/15/20 Principal diagnosis: Acute hypoxic respiratory failure requiring 2 L oxygen via nasal cannula Acute COVID-19 pneumonia Patient is a 49-year-old female with a long history of GERD and previous chest smoking presents to ER with complaints of shortness of breath. Patient states that she has been having symptoms since 05/31/2020. She received first dose of [place] COVID-19 vaccine on 06/01/2020. Patient came to ER due to worsening symptoms for the past 1 week. Patient states that her was infected with COVID-19 and is having mild symptoms. On admission patient was hypoxic at 88% on room air. Currently requiring 2 L oxygen via nasal cannula. Patient has been afebrile. Denied any complaints of chest pain. Patient states that she did have nausea and episodes of vomiting and diarrhea few days ago. No headache or dizziness or lightheadedness. Chest x-ray showed findings consistent with pneumonia. Laboratory data showed D-dimer 0.57, AST 71 ALT 46 LDH 1249, CRP 75.9 06/13/2020 Patient is currently lying in the bed comfortably., No complaints of chest pain. Shortness of breath with ambulation. Denies any fever or chills. No nausea vomiting. Diarrhea improved. Patient is being continued on remdesivir day 2, dexamethasone and multivitamins and Lovenox. Laboratory data showed D-dimer level is 0.43 and LDH 1143 and CRP 61.2. Chest x-ray showed worsening bilateral multifocal opacities consistent with worsening COVID-19 infection. Will reduce IV fluids to 20 cc/h. Pulmonary is on board. 06/14/2020 Patient is currently sitting in the chair comfortably. Patient states that her breathing is better today. Currently on oxygen at 2 L via nasal cannula and saturating at 88 to 92%. Laboratory data showed D-dimer is 0.58 and LDH 1362 and CRP 30.6 trending down. Patient is being continued on remdesivir day 3 and also on Decadron. Continued on multivitamins. Patient is tolerating oral diet. IV fluids at decreased rate. 06/15/2020 Patient is currently lying in bed comfortably. Patient states her breathing is better. Still requiring 4 L oxygen via nasal cannula. No complaints of chest pain. Patient has been afebrile. Saturating at 88 to 91%. Patient is receiving remdesivir day 4. Continued on dexamethasone and Lovenox. Pulmonary is on board. Continue with multivitamins. No nausea vomiting or abdominal pain or diarrhea. Laboratory data showed LDH 1549 and CRP 2.1 Current medications reviewed. Objective - Vital Signs Vital signs: Vital Signs Temp 98.1 F 06/15/20 12:00 Pulse 66 06/15/20 12:00 Resp 16 06/15/20 12:00 BP 141/71 06/15/20 12:00 Pulse Ox 88 L 06/15/20 12:00 Intake & Output 06/14/20 06/15/20 06/15/20 18:59 06:59 18:59 Intake Total 500 650 Balance 500 650 Intake: Oral 500 650 Other: # Voids 1 3 - Exam PHYSICAL EXAMINATION: Patient is lying in the bed comfortably, no acute distress, awake alert and oriented.. HEENT: Normocephalic. Neck is supple. Pupils reactive. Nostrils clear. Oral cavity is moist. Ears reveal no drainage. Neck reveals no JVD, carotid bruits, or thyromegaly. CHEST EXAMINATION: Trachea is central. Symmetrical expansion. Lung esparza clear to auscultation and percussion. CARDIAC: Normal S1, S2 with no gallops. No murmurs ABDOMEN: Soft. Bowel sounds normal. No organomegaly. No abdominal bruits. Extremities: reveal no edema. No clubbing or cyanosis Neurologically awake, alert, oriented x3 with well-coordinated movements. No f ocal deficits noted Skin: No rash or skin lesions. Psychiatric: Coperative. Nonsuicidal Musculoskeletal: No joint swelling or deformity. Normal range of motion. - Labs CBC & Chem 7: 06/15/20 10:55 06/15/20 10:55 Labs: Abnormal Lab Results - Last 24 Hours (Table) 06/15/20 06/15/20 Range/Units 10:55 10:55 Lymphocytes # 0.7 L (1.0-4.8) k/uL Glucose 138 H (74-99) mg/dL Lactate Dehydrogenase 1549 H (313-618) U/L C-Reactive Protein 2.1 H (<1.0) mg/dL Assessment and Plan Assessment: Acute hypoxic respiratory failure requiring 4 L oxygen via nasal cannula Acute COVID-19 pneumonia GERD Elevated inflammatory markers and lymphopenia secondary to COVID-19 pneumonia DVT prophylaxis with Lovenox subcu Plan: Patient will be continued on oxygen supplementation, dexamethasone 6 mg daily and Lovenox 40 mg subcu daily. Patient has been having symptoms for the past 7 days. c/w remdesivir course. Pulmonary is on board. Continue with multivitamins and follow-up closely. Titrate down FiO2 to room air. Patient is still requiring 4 L oxygen via nasal cannula. Clinically improving. Time with Patient: Greater than 30
--- NOTE | 2020-06-16 06:42 | XR ---
EXAMINATION TYPE: XR chest 1V portable DATE OF EXAM: 06/16/2020 CLINICAL HISTORY: Difficulty breathing progress study. TECHNIQUE: Single AP portable upright view of the chest is obtained. COMPARISON: Chest x-ray from 2 days earlier and older studies FINDINGS: Persistent bilateral multifocal opacities. Cardiac silhouette size is stable and upper li mits of normal. Osseous structures are intact. IMPRESSION: Continued bilateral multifocal opacities consistent with covid-19 infection. No signific ant change from most recent x-ray.
[2020-06-16] MEDS: CHOLECALCIFEROL 25 MCG (1000 IU) TABLET PO SCH (08:30)
[2020-06-16] MEDS: ASCORBIC ACID 500 MG TAB PO SCH (08:30)
[2020-06-16] MEDS: ZINC SULFATE 220 MG CAP PO SCH (08:30)
[2020-06-16] MEDS: dexAMETHasone 2 MG TAB PO SCH (08:30)
[2020-06-16] MEDS: ENOXAPARIN 40 MG/0.4 ML SYRINGE SQ SCH (08:31)
[2020-06-16 09:18] VITALS: BP 171/88; PULSE 64; RESP 16; TEMP 98.2
[2020-06-16] MEDS: ALBUTEROL HFA INHALER INHALATION SCH ×2 (09:42→13:11)
--- NOTE | 2020-06-16 09:43 | P.PN ---
Subjective Progress Note Date: 06/16/20 A 49-year-old female patient, presented to the emergency room because of shortness of breath and cough. The patient initially developed symptoms on 06/03/2020. Noted the patient received the first dose of vaccination with Pfizer on 06/01/2020. Over the past 7 days, the patient was progressively getting worse. Her is infected and is doing well. Her 21-year-old son is also doing good. The patient is currently hypoxic and a pulse ox of 89% currently on 2 L of oxygen by nasal cannula. Chest x-ray showing bilateral pneumonia. She did recover some diarrhea. Otherwise her history is essentially negative. Labs are all within normal limits. The patient has some lymphopenia. Inflammatory markers are being ordered to be monitored. LDH currently is at 1249 and the CRP is at 45 and a d-dimer has not been checked. She is quite comfortable. No DVTs or pulmonary embolism. No chronic lung disease. 06/13/2020 the patient is being seen for a follow-up. The patient is currently on Decadron and Remdesivir #2. No complaints. D-dimer is at 0.4, LDH level is 1143, CRP is down to 61. She is afebrile. She remains on 2 liters oxygen by nasal cannula. Nevertheless, the chest x-ray showing interval progression with worsening in the peripheral infiltrates on the right lung and some worsening of the left also. She has cough and she denies having any worsening in her breathing. On 07/14/2020, the patient remains on 2 L of oxygen by nasal cannula. Doing essentially the same as yesterday. She is on 2 L of oxygen by nasal cannula and the lowest pulse ox is been 87-88%. Her inflammatory markers from today shows a d-dimer of 0.4, LDH is still elevated at 1143 and the CRP is also at 61. No fever. No chills. Continues to have cough. Using incentive spirometer. She is on Decadron and she is also on day #3 of Remdesivir. Clinically she is feeling better and she feels that her breathing is improved compared to yesterday. On 06/15/2020 patient seen in follow-up on observation unit, today is day 4 of Remdesivir treatment, today patient is on 4 L pulse ox of 91-94%, attempt to wean it down to 2 L her saturation down to 88-89%, patient still has exertional dyspnea, but she's been able to get up to the bathroom and tolerated activity fairly well, no new chest x-ray, today's lab work has been reviewed in inflammatory markers as follows, with LDH of 1362, and CRP of 30.6, d-dimer today is 0.58 on today's labs, yesterday chest x-ray showed bilateral airspace disease. Vital signs have been stable, patient has been afebrile, with chest discomfort, cough has subsided, patient is requesting to go home today but in view of increasing oxygen requirement patient was recommended to stay and complete her treatment to which she is agreeable 06/16/2020 the patient is completing her course of REM. She is currently on 3 L of oxygen by nasal cannula. Pulse ox is no odor of 88-92%. She is quite comfortable. Inflammatory markers have been high still with an LDH of 1549 and a CRP of 2.1. These are from yesterday and today's labs are pending. She does have lymphopenia. D-dimer is low. Clinically stable. She is on Decadron also in combination with Remdesivir which she completed. She remains on Lovenox 40 mg subcu every 24 hours. She is quite active in her room. She is ambulating aggressively. She wants to go home and finish her recovery at home. Objective - Vital Signs Vital signs: Vital Signs Temp 98.2 F 06/16/20 08:00 Pulse 64 06/16/20 08:00 Resp 16 06/16/20 08:00 BP 171/88 06/16/20 08:00 Pulse Ox 92 L 06/16/20 08:00 Intake & Output 06/15/20 06/16/20 06/16/20 18:59 06:59 18:59 Intake Total 450 Balance 450 Intake: Oral 450 Other: # Voids 2 3 - Exam Obesity with a BMI of 43, calm and comfortable Head exam was generally normal. There was no scleral icterus or corneal arcus. M ucous membranes were moist. Neck was supple and without jugular venous distension, thyromegaly, or carotid bruits. Carotids were easily palpable bilaterally. There was no adenopathy. Lungs were clear to auscultation and percussion, and with normal diaphragmatic excursion. No wheezes or rales were noted. Minimal amount of crackles can be appreciated the lung bases bilaterally. Cardiac exam revealed the PMI to be normally situated and sized. The rhythm was regular and no extrasystoles were noted during several minutes of auscultation. The first and second heart sounds were normal and physiologic splitting of the second heart sound was noted. There were no murmurs, rubs, clicks, or gallops. Abdominal exam revealed normal bowel sounds. The abdomen was soft, non-tender, and without masses, organomegaly, or appreciable enlargement of the abdominal aorta. Examination of the extremities revealed easily palpable radial, femoral and pedal pulses. There was no cyanosis, clubbing or edema. Examination of the skin revealed no evidence of significant rashes, suspicious appearing nevi or other concerning lesions. Neurologically, the patient is awake and alert and the patient does not have any focal neurological deficit. Cranial nerves are essentially intact. - Labs CBC & Chem 7: 06/15/20 10:55 06/15/20 10:55 Labs: Abnormal Lab Results - Last 24 Hours (Table) 06/15/20 06/15/20 Range/Units 10:55 10:55 Lymphocytes # 0.7 L (1.0-4.8) k/uL Glucose 138 H (74-99) mg/dL Lactate Dehydrogenase 1549 H (313-618) U/L C-Reactive Protein 2.1 H (<1.0) mg/dL Assessment and Plan Plan: 1 acute COVID 19 pneumonia. Symptoms started on 06/03/2020. Symptoms got worse over the past 7 days. The patient presented with worsening shortness of breath and cough and some hypoxemia. The patient is currently on a combination of Decadron and Remdesivir day #5 . The patient has remained stable despite some ongoing abnormalities on the chest x-ray. She remains on oxygen at 3 L. The follow-up chest x-ray today looks stable, somewhat improved compared to the earlier chest x-ray. The patient wants to go home on oxygen and completing her Decadron treatment at home and I think it's reasonable. 2 acute hypoxemic respiratory failure currently on 2 L of oxygen by nasal cannula 3 morbid obesity with a BMI of 43 4 elevated inflammatory markers secondary to above 5 lymphopenia secondary to above Plan Decadron 6 mg by mouth daily, completing a total of 10 day Remdesivir per protocol day #5 today Give the patient unit of convalescent plasma The repeat chest x-ray showing diffuse bilateral pulmonary infiltrates, stable, slightly improved compared to yesterday Lovenox 40 mg subcu daily IV fluids at KVO Oxygen at 2-4 L per minute is a cannula and titrate the flow to maintain saturation above 90% arrange home concentrator Will follow up this patient in the office in 3-4 weeks
[2020-06-16] MEDS: REMDESIVIR 100 MG in SODIUM CHLORIDE 0.9% 250 ML IVPB SCH (11:21)
[2020-06-16 11:23] LABS: ALT 50 U/L (4-34); AST 49 U/L (14-36); African American GFR (CKD) >90 (>60 ml/min/1.73 sqM); Albumin 3.5 g/dL (3.5-5.0); Alkaline Phosphatase 67 U/L (38-126); Anion Gap 9 mmol/L; Blood Urea Nitrogen 14 mg/dL (7-17); C Reactive Protein 1.5 mg/dL (<1.0); Calcium 8.9 mg/dL (8.4-10.2); Carbon Dioxide 29 mmol/L (22-30); Chloride 101 mmol/L (98-107); Glucose 161 mg/dL (74-99); LDH 1420 U/L (313-618); Non-African American GFR(CKD) >90 (>60 ml/min/1.73 sqM); Potassium 4.2 mmol/L (3.5-5.1); Sodium 139 mmol/L (137-145); Total Bilirubin 0.6 mg/dL (0.2-1.3); Total Protein 6.3 g/dL (6.3-8.2)
== END 2020-06-16 14:00 | disposition home or self-care (01) | DRG 177 ==
LOC: EC 05:11 → SUPCPDRO 05:11 → 1SOBS 06:39
PROVIDERS: ADMIT Hospitalist; ATTEND Hospitalist
PROC: XW033E5 Introduction of Remdesivir Anti-infective into Peripheral Vein, Percutaneous Approach, New Technology Group 5 (ICD-10-PCS; principal; 2020-06-12)
PROC: XW13325 Transfusion of Convalescent Plasma (Nonautologous) into Peripheral Vein, Percutaneous Approach, New Technology Group 5 (ICD-10-PCS; 2020-06-13)
DX: U07.1 COVID-19 (principal); J12.82 Pneumonia due to coronavirus disease 2019; J96.01 Acute respiratory failure with hypoxia; Z68.41 Body mass index [BMI] 40.0-44.9, adult; K21.9 Gastro-esophageal reflux disease without esophagitis; E66.01 Morbid (severe) obesity due to excess calories; D72.810 Lymphocytopenia; Z79.899 Other long term (current) drug therapy; Z90.49 Acquired absence of other specified parts of digestive tract; Z82.49 Family history of ischemic heart disease and other diseases of the circulatory system; Z83.49 Family history of other endocrine, nutritional and metabolic diseases; Z87.891 Personal history of nicotine dependence
CPT/HCPCS: 36415; 71045; 80048; 80053; 83605; 83615; 83735; 85025; 85379; 85610; 85730; 86140; 86850; 86900; 86901; 93005; 94640; 94760; 96361; 96374; 96375; 99285

== ENCOUNTER → 2022-07-31 | Day surgery (SDC) | payer BC ==
--- NOTE | 2022-07-31 14:35 | MM ---
Reason for Exam: Post Procedure Mammogram. Risk Values: [place] 5 year model risk: 0.7%. NCI Lifetime model risk: 5.8%. Tissue Density: Right: The breast tissue is heterogeneously dense. This may lower the sensitivity of mammography. Overall Assessment: Post procedure mammogram for marker placement Management: Post Mammogram for Moiz Placement of the right breast. Electronically signed and approved by: Jarrett Murry DO
--- NOTE | 2022-08-07 08:31 | USB ---
Risk Values: Kaylen 5 year model risk: 0.7%. NCI Lifetime model risk: 5.8%. Pathology Description: Location: 9 o'clock. Marker Left Behind. Cores: 6 Skin Nicks: 1 Gauge: 13 The procedure of ultrasound guided core biopsy was explained to the patient. Benefits, alternatives, and risks were discussed. An informed consent was then obtained. The patient was placed in supine positioning for imaging and for the procedure. The overlying skin was prepped and draped in usual sterile fashion. Lidocaine buffered with bicarbonate was used as anesthetic into the skin and subcutaneous tissue up to area of concern in the right axillary tail. A selina was made with surgical scalpel. Under ultrasound guidance, a 12-gauge vacuum assisted biopsy gun device was used to obtain 6 core samples. Following this, a biopsy clip was left in lesion. The patient tolerated the procedure well without any immediate complication. The patient was kept in the radiology department for short stay after the procedure and then discharged home in stable condition. Postprocedure mammogram: The patient was transferred to mammography for physician ordered post procedure mammogram for clip placement verification. Impression: Successful, uncomplicated ultrasound guided core biopsy of area of concern in the right axillary tail, full pathology results to follow. Pathology Results: Result: Benign, Fibroadenoma. RIGHT BREAST, 9:00, ULTRASOUND GUIDED NEEDLE CORE BIOPSY: Fibroadenoma. Overall Assessment: Benign Management: Diagnostic Mammogram of the right breast in 6 months. Diagnostic Breast Ultrasound of the right breast in 6 months. Electronically signed and approved by: Jarrett Murry DO
== END ==
LOC: RADUSWWP 12:49
PROVIDERS: ATTEND Surgery
DX: D24.1 Benign neoplasm of right breast (principal)
CPT/HCPCS: 88305; 77065; 19083; A4648

== ENCOUNTER → 2022-08-07 | Outpatient (CLI) | payer BC ==
[2022-08-07 12:56] VITALS: BP 137/84; PULSE 67; RESP 18; TEMP 98.1
--- NOTE | 2022-08-07 13:08 | P.GSHP ---
History of Present Illness H&P Date: 08/07/22 Chief Complaint: fibroadenoma right breast Lisa is a 51 year old white female seen in consultation for Dr. Galarza regarding a right breast fibroadenoma. She had a bilateral mammogram on 06-19-22, which led to a right breast ultrasound on 07-07-22. She had an ultraso und core biopsy of an area of a circumscribed round mass at 9 oclock measuring 1.2 by 1.4 cm in size on 07-31-22. Pathology revealed a fibroadenoma. She does not feel any lumps masses or nodules of concern. She gets mammograms on a regular basis. She is not complaining of any nipple discharge or skin changes. She has not had any surgeries on her breasts although she has had core biopsies in the past, 2009. This showed metaplastic cells. It was done at [facility]. She has never had any atypia on her biopsies. Caffeine: 3 coffee/day nicotine: stopped 8 years ago, used to smoke 1 PPD for about 25 years chocolate: twice a week BCP: none hormoens: none Family history: paternal grandmother: breast cancer paternal aunt: breast cancer Hormonal history: Menarche: 12 M1, breast fed: yes, age at : 32 menopause: 49 hormones: none Surgical history: gallbladder Medical History: PVC's Social History: nicotine: as above alcohol: none drugs: none - Constitutional Constitutional: Denies chills, Denies fever - EENT Eyes: denies blurred vision, denies pain Ears: deny: decreased hearing, tinnitus Ears, nose, mouth and throat: Denies headache, Denies sore throat - Breasts Breasts: bilateral: as per HPI - Cardiovascular Cardiovascular: Denies chest pain, Denies shortness of breath - Respiratory Respiratory: Denies cough, Denies 7 - Gastrointestinal Gastrointestinal: Denies abdominal pain, Denies diarrhea, Denies nausea, Denies vomiting - Menstruation Menstruation: Reports postmenopausal - Musculoskeletal Musculoskeletal: Denies myalgias - Integumentary Integumentary: Denies pruritus, Denies rash - Neurological Neurological: Denies numbness, Denies weakness - Psychiatric Psychiatric: Denies anxiety, Denies depression - Endocrine Endocrine: Reports weight change, Denies fatigue - Hematologic/Lymphatic Comment: none - Allergic/Immunologic Allergic/Immunologic: Reports as per HPI Past Medical History Past Medical History: No Reported History Additional Past Medical History / Comment(s): Pt tested covid + on 06/05/20 at [facility] dept. History of Any Multi-Drug Resistant Organisms: None Reported Past Surgical History: Cholecystectomy Additional Past Surgical History / Comment(s): breast biopsy 2009 Past Anesthesia/Blood Transfusion Reactions: No Reported Reaction Past Psychological History: No Psychological Hx Reported Additional Psychological History / Comment(s): Pt resides with her spouse and son. She is independent. Smoking Status: Former smoker Past Alcohol Use History: None Reported Additional Past Alcohol Use History / Comment(s): Pt started smoking in 1985 and quit in 2014. Past Drug Use History: None Reported - Past Family History Mother Family Medical History: AFIB, Hyperlipidemia, Hypertension Father Family Medical History: Coronary Artery Disease (CAD), Myocardial Infarction (PR) Additional Family Medical History / Comment(s): Father of a PR at the age of 60yrs. father's family has hx of breast cancer Medications and Allergies Home Medications Medication Instructions Recorded Confirmed Type Metoprolol Succinate [Kapspargo 25 mg PO DAILY 07/23/22 08/07/22 History Sprinkle] Cholecalciferol [Vitamin D3 (25 25 mcg PO DAILY 08/07/22 08/07/22 History Mcg = 1000 Iu)] Magnesium 200 mg PO DAILY 08/07/22 08/07/22 History Multivitamin [Multivitamins Adult 1 each PO DAILY 08/07/22 08/07/22 History Gummies] Alton-3 Fatty Acids [Alton-3] 1,000 mg PO DAILY 08/07/22 08/07/22 History Ubidecarenone [Co Q-10] 30 mg PO DAILY 08/07/22 08/07/22 History Allergies Allergy/AdvReac Type Severity Reaction Status Date / Time No Known Allergies Allergy Verified 08/07/22 12:50 Surgical - Exam - General no distress - Eyes normal ocular movement - Neck trachea midline - Respiratory normal respiratory effort, clear to auscultation - Cardiovascular Rhythm: regular Heart Sounds: normal: S1, S2 - Abdomen Abdomen: soft, non tender, no guarding, no rigid, no rebound - Integumentary normal turgor - Neurologic no disoriented, no combative - Musculoskeletal normal gait - Psychiatric oriented to time, oriented to person, oriented to place, speech is normal, memory intact Breast Exam: BRA: 44DD Inspection: Bilateral grade 2/3 ptosis Palpation: Right breast: Multi-positional exam no dominant masses or nodules of concern, ecchymosis at biopsy site no evidence of infection or hematoma, the fibroadenoma is not palpable Right axilla: No adenopathy of concern Left breast: No dominant masses or nodules of concern on multi-positional exam Left axilla: No adenopathy of concern Results Mammogram and ultrasound reports reviewed Assessment and Plan Assessment: Impression: Right breast fibroadenoma biopsy-proven Fibrocystic breast changes Plan: Repeat right breast mammogram and ultrasound in 6 months with examination at that time Patient to follow up sooner any questions or concerns CC: Dr. Partida
== END ==
LOC: WWCWWP 12:44
PROVIDERS: ATTEND Surgery
DX: N60.21 Fibroadenosis of right breast (principal); Z80.3 Family history of malignant neoplasm of breast; Z87.891 Personal history of nicotine dependence; U07.1 COVID-19

== ENCOUNTER → 2023-02-02 | Outpatient (CLI) | payer BC ==
--- NOTE | 2023-02-02 15:09 | USB ---
Reason for Exam: Additional evaluation requested from prior study. Patient History: Menarche at age 12. First Full-Term at age 32. Late child-bearing (after 30). Postmenopausal. 07/31/2022, Benign US biopsy breast VAD RT on the right side. Paternal grandmother had breast cancer, age 60. Paternal aunt had breast cancer, age 40. Risk Values: Kaylen 5 year model risk: 1.8%. NCI Lifetime model risk: 13.5%. Technique: Method: Targeted. Prior Study Comparison: 07/31/2022 Right MG diagnostic mammo RT wo CAD, [facility]. Findings: The lateral section of the breast of the right breast was scanned. Technique utilized:US breast limited RT Image; Ultrasound imaging of: Area of concern, retroareolar region and axilla. Fibroadenoma redemonstrated with biopsy clip. No evidence for organizing fluid collection or mass. Overall Assessment: Benign, BI-RAD 2 Management: Screening Mammogram of both breasts in 1 year. A clinical breast exam by your physician is recommended on an annual basis and results should be correlated with mammographic findings. This exam should not preclude additional follow-up of suspicious palpable abnormalities. Results were given to the patient verbally at the time of exam. Electronically signed and approved by: Jarrett Murry DO
== END | disposition home or self-care (01) ==
LOC: RADMAMWWP 13:32
PROVIDERS: ATTEND Surgery
DX: R92.8 Other abnormal and inconclusive findings on diagnostic imaging of breast (principal); Z78.0 Asymptomatic menopausal state; Z80.3 Family history of malignant neoplasm of breast
CPT/HCPCS: 77061; 77065

== ENCOUNTER → 2023-02-05 | Outpatient (CLI) | payer BC ==
--- NOTE | 2023-02-05 14:31 | P.PN ---
Subjective Progress Note Date: 02/05/23 Principal diagnosis: fibroadenoma right breast fibroadenoma right breast Lisa is a 52 year old white female seen in consultation for Dr. Galarza regarding a right breast fibroadenoma. She had a bilateral mammogram on 06-19-22, which led to a right breast ultrasound on 07-07-22. She had an ultrasound core biopsy of an area of a circumscribed round mass at 9 oclock measuring 1.2 by 1.4 cm in size on 07-31-22. Pathology revealed a fibroadenoma. She does not feel any lumps masses or nodules of concern. She gets mammograms on a regular basis. She is not complaining of any nipple discharge or skin changes. She has not had any surgeries on her breasts although she has had core biopsies in the past, 2009. This showed metaplastic cells. It was done at [facility]. She has never had any atypia on her biopsies. Right breast mammogram and ultrasound on 02-02-[address] Beaulieu fibroadenoma redemonstrated and stable, SHANTELL 2. Caffeine: 3 coffee/day nicotine: stopped 8 years ago, used to smoke 1 PPD for about 25 years chocolate: twice a week BCP: none hormoens: none Family history: paternal grandmother: breast cancer paternal aunt: breast cancer Hormonal history: Menarche: 12 M1, breast fed: yes, age at : 32 menopause: 49 hormones: none Surgical history: gallbladder Medical History: PVC's Social History: nicotine: as above alcohol: none drugs: none - Constitutional Constitutional: Denies chills, Denies fever - EENT Eyes: denies blurred vision, denies pain Ears: deny: decreased hearing, tinnitus Ears, nose, mouth and throat: Denies headache, Denies sore throat - Breasts Breasts: bilateral: as per HPI - Cardiovascular Cardiovascular: Denies chest pain, Denies shortness of breath - Respiratory Respiratory: Denies cough - Gastrointestinal Gastrointestinal: Denies abdominal pain, Denies diarrhea, Denies nausea, Denies vomiting - Menstruation Menstruation: Reports postmenopausal - Musculoskeletal Musculoskeletal: Denies myalgias - Integumentary Integumentary: Denies pruritus, Denies rash - Neurological Neurological: Denies numbness, Denies weakness - Psychiatric Psychiatric: Denies anxiety, Denies depression - Endocrine Endocrine: Reports weight change, Denies fatigue - Hematologic/Lymphatic Comment: none - Allergic/Immunologic Allergic/Immunologic: Reports as per HPI Past Medical History Past Medical History: No Reported History Additional Past Medical History / Comment(s): Pt tested covid + on 06/05/[address] [facility] dept. History of Any Multi-Drug Resistant Organisms: None Reported Past Surgical History: Cholecystectomy Additional Past Surgical History / Comment(s): breast biopsy 2009 Past Anesthesia/Blood Transfusion Reactions: No Reported Reaction Past Psychological History: No Psychological Hx Reported Additional Psychological History / Comment(s): Pt resides with her spouse and son. She is independent. Smoking Status: Former smoker Past Alcohol Use History: None Reported Additional Past Alcohol Use History / Comment(s): Pt started smoking in 1985 and quit in 2014. Past Drug Use History: None Reported - Past Family History Mother Family Medical History: AFIB, Hyperlipidemia, Hypertension Father Family Medical History: Coronary Artery Disease (CAD), Myocardial Infarction (AL) Additional Family Medical History / Comment(s): Father of a AL at the age of 60yrs. father's family has hx of breast cancer Medications and Allergies Home Medications Medication Instructions Recorded Confirmed Type Metoprolol Succinate [Kapspargo 25 mg PO DAILY 07/23/22 08/07/22 History Sprinkle] Cholecalciferol [Vitamin D3 (25 25 mcg PO DAILY 08/07/22 08/07/22 History Mcg = 1000 Iu)] Magnesium 200 mg PO DAILY 08/07/22 08/07/22 History Multivitamin [Multivitamins Adult 1 each PO DAILY 08/07/22 08/07/22 History Gummies] Bowdon-3 Fatty Acids [Bowdon-3] 1,000 mg PO DAILY 08/07/22 08/07/22 History Ubidecarenone [Co Q-10] 30 mg PO DAILY 08/07/22 08/07/22 History Allergies Allergy/AdvReac Type Severity Reaction Status Date / Time No Known Allergies Allergy Verified 08/07/22 12:50 Objective - Vital Signs Vital signs: Vital Signs Temp 97.8 F 02/05/23 14:14 Pulse 65 02/05/23 14:14 Resp 17 02/05/23 14:14 BP 141/79 02/05/23 14:14 Pulse Ox 98 02/05/23 14:14 FiO2 Intake & Output 12/06/23 12/07/23 12/07/23 18:59 06:59 18:59 Weight 111.13 kg - Constitutional General appearance: Present: cooperative - EENT Eyes: Present: EOMI ENT: Present: hearing grossly normal - Neck Neck: Present: normal ROM - Respiratory Respiratory: bilateral: CTA - Cardiovascular Rhythm: regular - Integumentary Integumentary: Present: normal turgor - Musculoskeletal Musculoskeletal: Present: gait normal - Psychiatric Psychiatric: Present: A&O x's 3, appropriate affect, intact judgment & insight - Additional findings Additional findings: Breast Exam: BRA: 44DD Inspection: Bilateral grade 2/3 ptosis Palpation: Right breast: Multi-positional exam no dominant masses or nodules of concern, the fibroadenoma is not palpable Right axilla: No adenopathy of concern Left breast: No dominant masses or nodules of concern on multi-positional exam Left axilla: No adenopathy of concern Assessment and Plan Assessment: Impression: Right breast fibroadenoma biopsy-proven Fibrocystic breast changes Plan: Repeat bilateral mammogram in months with follow-up at that time, we will also do an ultrasound of the right breast to assure stability of the fibroadenoma Patient to follow up sooner any questions or concerns CC: Dr. Partida
[2023-02-05 14:38] VITALS: BP 141/79; PULSE 65; RESP 17; TEMP 97.8
== END ==
LOC: WWCWWP 13:27
PROVIDERS: ATTEND Surgery
DX: Z12.31 Encounter for screening mammogram for malignant neoplasm of breast (principal); D24.1 Benign neoplasm of right breast; N60.11 Diffuse cystic mastopathy of right breast; Z90.49 Acquired absence of other specified parts of digestive tract; Z86.16 Personal history of COVID-19; Z86.018 Personal history of other benign neoplasm; Z87.891 Personal history of nicotine dependence

== ENCOUNTER → 2023-06-24 | Outpatient (CLI) | payer BC ==
--- NOTE | 2023-06-24 15:11 | USB ---
Reason for Exam: Follow-up at short interval from prior study. Patient History: Menarche at age 12. First Full-Term at age 32. Late child-bearing (after 30). Postmenopausal. 07/31/2022, Benign US biopsy breast VAD RT on the right side. Paternal grandmother had breast cancer, age 60. Paternal aunt had breast cancer, age 40. Risk Values: Kaylen 5 year model risk: 1.8%. NCI Lifetime model risk: 13.5%. Technique: Method: Targeted. Prior Study Comparison: 06/19/2022 Bilateral Diagnostic 3D/Tomosynthesis, [facility]. 07/31/2022 Right MG diagnostic mammo RT wo CAD, [facility]. 02/02/2023 Right MG 3D diag mammo w/cad RT, [facility]. Findings: The lateral section of the breast of the right breast, the axilla of the right breast and the retroareolar of the right breast were scanned. Previously sampled stable fibroadenomas noted at the right o'clock position with internal microclip marker. Fibroadenoma measures 9 x 8 mm. No new masses seen. Overall Assessment: Benign, BI-RAD 2 Management: Screening Mammogram of both breasts in 6 months. A clinical breast exam by your physician is recommended on an annual basis and results should be correlated with mammographic findings. This exam should not preclude additional follow-up of suspicious palpable abnormalities. Results were given to the patient verbally at the time of exam. Electronically signed and approved by: Gavino Vila M.D. Radiologis
--- NOTE | 2023-06-25 15:03 | MM ---
Reason for Exam: Follow-up at short interval from prior study. Last screening mammogram was performed 12 month(s) ago. Patient History: Menarche at age 12. First Full-Term at age 32. Late child-bearing (after 30). Postmenopausal. 07/31/2022, Benign US biopsy breast VAD RT on the right side. Paternal grandmother had breast cancer, age 60. Paternal aunt had breast cancer, age 40. Risk Values: Kaylen 5 year model risk: 1.8%. NCI Lifetime model risk: 13.5%. Prior Study Comparison: 11/12/2021 Bilateral Diagnostic 3D/Tomosynthesis, Unknown. 06/19/2022 Bilateral Diagnostic 3D/Tomosynthesis, [facility]. 07/31/2022 Right MG diagnostic mammo RT wo CAD, [facility]. 02/02/2023 Right MG 3D diag mammo w/cad RT, [facility]. 02/02/2023 Right US breast limited RT, [facility]. Tissue Density: The breasts are heterogeneously dense, which may obscure small masses. Findings: Analyzed By CAD. Sampled nodule noted right breast. Ultrasound recommended. Stable benign calcifications seen. No suspicious are concerning nodule left breast. Overall Assessment: Incomplete: need additional imaging evaluation, BI-RAD 0 Management: Diagnostic Breast Ultrasound of the right breast. . Results were given to the patient verbally at the time of exam. Patient should continue monthly self-breast exams. A clinical breast exam by your physician is recommended on an annual basis. This exam should not preclude additional follow-up of suspicious palpable abnormalities. Note on Kaylen scores and lifetime risk: 1. A Kaylen score greater than 3% is considered moderate risk. If this is the case, consider specialist referral to assess eligibility for a risk reducing agent. 2. If overall lifetime risk for the development of breast cancer is 20% or higher, the patient may qualify for future screening with alternating mammogram and breast MRI. Electronically signed and approved by: Gavino Vila M.D. Radiologis
== END | disposition home or self-care (01) ==
LOC: RADMAMWWP 13:35
PROVIDERS: ATTEND Surgery
DX: D24.1 Benign neoplasm of right breast (principal); N63.10 Unspecified lump in the right breast, unspecified quadrant; R92.333 Mammographic heterogeneous density, bilateral breasts; Z80.3 Family history of malignant neoplasm of breast; Z78.0 Asymptomatic menopausal state
CPT/HCPCS: 77062; 77066

== ENCOUNTER → 2023-06-25 | Outpatient (CLI) | payer BC ==
--- NOTE | 2023-06-25 13:02 | P.PN ---
Subjective Progress Note Date: 06/25/23 Principal diagnosis: fibroadenoma left breast 06-25-23 Principal diagnosis: fibroadenoma right breast Lisa is a 52 year old white female seen in consultation for Dr. Galarza regarding a right breast fibroadenoma. She had a bilateral mammogram on 06-19-22, which led to a right breast ultrasound on 07-07-22. She had an ultrasound core biopsy of an area of a circumscribed round mass at 9 oclock measuring 1.2 by 1.4 cm in size on 07-31-22. Pathology revealed a fibroadenoma. She does not feel any lumps masses or nodules of concern. She gets mammograms on a regular basis. She is not complaining of any nipple discharge or skin changes. She has not had any surgeries on her breasts although she has had core biopsies in the past, 2009. This showed metaplastic cells. It was done at [facility]. She has never had any atypia on her biopsies. Right breast mammogram and ultrasound on 02-02-[address] Beaulieu fibroadenoma redemonstrated and stable, BIRAD 2. Concerned about any new lumps masses or nodules in either breast. Bilateral mammogram and left breast ultrasound on 06-24-23, BIRAD 2 Caffeine: 3 coffee/day nicotine: stopped 8 years ago, used to smoke 1 PPD for about 25 years chocolate: twice a week BCP: none hormoens: none Family history: paternal grandmother: breast cancer paternal aunt: breast cancer Hormonal history: Menarche: 12 M1, breast fed: yes, age at : 32 menopause: 49 hormones: none Surgical history: gallbladder Medical History: [facility] Social History: nicotine: as above alcohol: none drugs: none - Constitutional Constitutional: Denies chills, Denies fever - EENT Eyes: denies blurred vision, denies pain Ears: deny: decreased hearing, tinnitus Ears, nose, mouth and throat: Denies headache, Denies sore throat - Breasts Breasts: bilateral: as per HPI - Cardiovascular Cardiovascular: Denies chest pain, Denies shortness of breath - Respiratory Respiratory: Denies cough - Gastrointestinal Gastrointestinal: Denies abdominal pain, Denies diarrhea, Denies nausea, Denies vomiting - Menstruation Menstruation: Reports postmenopausal - Musculoskeletal Musculoskeletal: Denies myalgias - Integumentary Integumentary: Denies pruritus, Denies rash - Neurological Neurological: Denies numbness, Denies weakness - Psychiatric Psychiatric: Denies anxiety, Denies depression - Endocrine Endocrine: Reports weight change, Denies fatigue - Hematologic/Lymphatic Comment: none - Allergic/Immunologic Allergic/Immunologic: Reports as per HPI Past Medical History Past Medical History: No Reported History Additional Past Medical History / Comment(s): Pt tested covid + on 06/05/20 at [facility] dept. History of Any Multi-Drug Resistant Organisms: None Reported Past Surgical History: Cholecystectomy Additional Past Surgical History / Comment(s): breast biopsy 2009 Past Anesthesia/Blood Transfusion Reactions: No Reported Reaction Past Psychological History: No Psychological Hx Reported Additional Psychological History / Comment(s): Pt resides with her spouse and son. She is independent. Smoking Status: Former smoker Past Alcohol Use History: None Reported Additional Past Alcohol Use History / Comment(s): Pt started smoking in 1985 and quit in 2014. Past Drug Use History: None Reported - Past Family History Mother Family Medical History: AFIB, Hyperlipidemia, Hypertension Father Family Medical History: Coronary Artery Disease (CAD), Myocardial Infarction (NH) Additional Family Medical History / Comment(s): Father of a NH at the age of 60yrs. father's family has hx of breast cancer Medications and Allergies Home Medications Medication Instructions Recorded Confirmed Type Metoprolol Succinate [Kapspargo 25 mg PO DAILY 07/23/22 08/07/22 History Sprinkle] Cholecalciferol [Vitamin D3 (25 25 mcg PO DAILY 08/07/22 08/07/22 History Mcg = 1000 Iu)] Magnesium 200 mg PO DAILY 08/07/22 08/07/22 History Multivitamin [Multivitamins Adult 1 each PO DAILY 08/07/22 08/07/22 History Gummies] Nipomo-3 Fatty Acids [Nipomo-3] 1,000 mg PO DAILY 08/07/22 08/07/22 History Ubidecarenone [Co Q-10] 30 mg PO DAILY 08/07/22 08/07/22 History Allergies Allergy/AdvReac Type Severity Reaction Status Date / Time No Known Allergies Allergy Verified 08/07/22 12:50 Objective - Vital Signs Vital signs: Intake & Output 06/24/23 06/25/23 06/25/23 18:59 06:59 18:59 Weight 113.398 kg - Constitutional General appearance: Present: cooperative - EENT Eyes: Present: EOMI ENT: Present: hearing grossly normal - Neck Neck: Present: normal ROM - Respiratory Respiratory: bilateral: CTA - Cardiovascular Heart sounds: normal: S1, S2 - Integumentary Integumentary: Present: normal turgor - Musculoskeletal Musculoskeletal: Present: gait normal - Psychiatric Psychiatric: Present: A&O x's 3, appropriate affect, intact judgment & insight - Additional findings Additional findings: Breast Exam: BRA: 44DD Inspection: Bilateral grade 2/3 ptosis Palpation: Right breast: Multi-positional exam no dominant masses or nodules of concern, the fibroadenoma is not palpable Right axilla: No adenopathy of concern Left breast: No dominant masses or nodules of concern on multi-positional exam Left axilla: No adenopathy of concern Assessment and Plan Assessment: mpression: Right breast fibroadenoma biopsy-proven Fibrocystic breast changes Plan: Repeat bilateral mammogram in one year with follow up at that time Patient to follow up sooner any questions or concerns CC: Dr. Partida
[2023-06-25 13:13] VITALS: BP 144/83; PULSE 58; RESP 17; TEMP 98.2
== END ==
LOC: WWCWWP 12:33
PROVIDERS: ATTEND Surgery
DX: Z12.31 Encounter for screening mammogram for malignant neoplasm of breast (principal); R92.8 Other abnormal and inconclusive findings on diagnostic imaging of breast; D24.1 Benign neoplasm of right breast; D24.2 Benign neoplasm of left breast; N63.20 Unspecified lump in the left breast, unspecified quadrant; N63.10 Unspecified lump in the right breast, unspecified quadrant; N60.11 Diffuse cystic mastopathy of right breast; Z80.3 Family history of malignant neoplasm of breast; Z87.891 Personal history of nicotine dependence; Z86.16 Personal history of COVID-19

== ENCOUNTER → 2024-06-29 | Outpatient (CLI) | payer BC ==
--- NOTE | 2024-07-04 08:10 | MM ---
Reason for Exam: Screening (asymptomatic). Last screening mammogram was performed 12 month(s) ago. Patient History: Menarche at age 12. First Full-Term at age 32. Late child-bearing (after 30). Postmenopausal. 07/31/2022, Benign US biopsy breast VAD RT on the right side. Paternal grandmother had breast cancer, age 60. Paternal aunt had breast cancer, age 40. Risk Values: Kaylen 5 year model risk: 1.9%. NCI Lifetime model risk: 13.3%. Prior Study Comparison: 07/31/2022 Right MG diagnostic mammo RT wo CAD, [facility]. 02/02/2023 Right MG 3D diag mammo w/cad RT, [facility]. 06/24/2023 Bilateral MG 3D diag mammo w/cad [facility], [facility]. Tissue Density: The breasts are heterogeneously dense, which may obscure small masses. Findings: Analyzed By CAD. Mammotome biopsy clip in the right breast is redemonstrated. There is single benign-appearing dystrophic calcification anteriorly in the left breast upper-outer aspect redemonstrated. Linear is 11 mm circumscribed oval mass with a few benign-appearing round calcifications in the posterior right breast which is slightly smaller in size versus prior study. Benign-appearing bilateral axillary lymph nodes are now seen. There is no suspicious new group of microcalcifications or new suspicious mass in either breast. Overall Assessment: Benign, BI-RAD 2 Management: Screening Mammogram of both breasts in 1 year. Some advise annual bilateral breast ultrasound surveillance in patients with background dense tissue. Patient should continue monthly self-breast exams. A clinical breast exam by your physician is recommended on an annual basis. This exam should not preclude additional follow-up of suspicious palpable abnormalities. Note on Kaylen scores and lifetime risk: 1. A Kaylen score greater than 3% is considered moderate risk. If this is the case, consider specialist referral to assess eligibility for a risk reducing agent. 2. If overall lifetime risk for the development of breast cancer is 20% or higher, the patient may qualify for future screening with alternating mammogram and breast MRI. [facility], , 06/29/2024 2:52 PM. Electronically signed and approved by: Miguelangel Jorgensen M.D.
== END | disposition home or self-care (01) ==
LOC: RADMAMWWP 13:21
PROVIDERS: ATTEND Surgery
DX: Z12.31 Encounter for screening mammogram for malignant neoplasm of breast (principal); R92.333 Mammographic heterogeneous density, bilateral breasts; R92.1 Mammographic calcification found on diagnostic imaging of breast; Z78.0 Asymptomatic menopausal state; Z80.3 Family history of malignant neoplasm of breast
CPT/HCPCS: 77063; 77067

== ENCOUNTER → 2024-06-30 | Outpatient (CLI) | payer BC ==
[2024-06-30 13:24] VITALS: BP 163/93; PULSE 71; RESP 16; TEMP 97.8
--- NOTE | 2024-06-30 13:32 | P.PN ---
Subjective Progress Note Date: 06/30/24 Principal diagnosis: fibroadenoma right breast 06-30-24 Principal diagnosis: fibroadenoma right breast 06-25-23 Lisa is a 52 year old white female seen in consultation for Dr. Galarza regarding a right breast fibroadenoma. She had a bilateral mammogram on 06-19-22, which led to a right breast ultrasound on 07-07-22. She had an ultrasound core biopsy of an area of a circumscribed round mass at 9 oclock measuring 1.2 by 1.4 cm in size on 07-31-22. Pathology revealed a fibroadenoma. She does not feel any lumps masses or nodules of concern. She gets mammograms on a regular basis. She is not complaining of any nipple discharge or skin changes. She has not had any surgeries on her breasts although she has had core biopsies in the past, 2009. This showed metaplastic cells. It was done at [facility]. She has never had any atypia on her biopsies. Right breast mammogram and ultrasound on 02-02-[address] Beaulieu fibroadenoma redemonstrated and stable, BIRAD 2. Concerned about any new lumps masses or nodules in either breast. Bilateral mammogram and left breast ultrasound on 06-24-23, BIRAD 2 06-30-24 Bilateral mammogram on 06-29-24 report pending She is not complaining of any new lumps masses or nodules of concern in either breast. She is not complaining of any nipple discharge or skin changes. Caffeine: 3 coffee/day nicotine: stopped 8 years ago, used to smoke 1 PPD for about 25 years chocolate: twice a week BCP: none hormoens: none Family history: paternal grandmother: breast cancer paternal aunt: breast cancer Hormonal history: Menarche: 12 M1, breast fed: yes, age at : 32 menopause: 49 hormones: none Surgical history: gallbladder Medical History: PVC's Social History: nicotine: as above alcohol: none drugs: none - Constitutional Constitutional: Denies chills, Denies fever - EENT Eyes: denies blurred vision, denies pain Ears: deny: decreased hearing, tinnitus Ears, nose, mouth and throat: Denies headache, Denies sore throat - Breasts Breasts: bilateral: as per HPI - Cardiovascular Cardiovascular: Denies chest pain, Denies shortness of breath - Respiratory Respiratory: Denies cough - Gastrointestinal Gastrointestinal: Denies abdominal pain, Denies diarrhea, Denies nausea, Denies vomiting - Menstruation Menstruation: Reports postmenopausal - Musculoskeletal Musculoskeletal: Denies myalgias - Integumentary Integumentary: Denies pruritus, Denies rash - Neurological Neurological: Denies numbness, Denies weakness - Psychiatric Psychiatric: Denies anxiety, Denies depression - Endocrine Endocrine: Reports weight change, Denies fatigue - Hematologic/Lymphatic Comment: none - Allergic/Immunologic Allergic/Immunologic: Reports as per HPI Past Medical History Past Medical History: No Reported History Additional Past Medical History / Comment(s): Pt tested covid + on 06/05/20 at [facility] dept. History of Any Multi-Drug Resistant Organisms: None Reported Past Surgical History: Cholecystectomy Additional Past Surgical History / Comment(s): breast biopsy 2009 Past Anesthesia/Blood Transfusion Reactions: No Reported Reaction Past Psychological History: No Psychological Hx Reported Additional Psychological History / Comment(s): Pt resides with her spouse and son. She is independent. Smoking Status: Former smoker Past Alcohol Use History: None Reported Additional Past Alcohol Use History / Comment(s): Pt started smoking in 1985 and quit in 2014. Past Drug Use History: None Reported - Past Family History Mother Family Medical History: AFIB, Hyperlipidemia, Hypertension Father Family Medical History: Coronary Artery Disease (CAD), Myocardial Infarction ([place]) Additional Family Medical History / Comment(s): Father of a [place] at the age of 60yrs. father's family has hx of breast cancer Medications and Allergies Home Medications Medication Instructions Recorded Confirmed Type Metoprolol Succinate [Kapsp[place] 25 mg PO DAILY 07/23/22 08/07/22 History Sprinkle] Cholecalciferol [Vitamin D3 (25 25 mcg PO DAILY 08/07/22 08/07/22 History Mcg = 1000 Iu)] Magnesium 200 mg PO DAILY 08/07/22 08/07/22 History Multivitamin [Multivitamins Adult 1 each PO DAILY 08/07/22 08/07/22 History Gummies] [place]-3 Fatty Acids [[place]-3] 1,000 mg PO DAILY 08/07/22 08/07/22 History Ubidecarenone [Co Q-10] 30 mg PO DAILY 08/07/22 08/07/22 History Allergies Allergy/AdvReac Type Severity Reaction Status Date / Time No Known Allergies Allergy Verified 08/07/22 12:50 Objective - Constitutional General appearance: Present: cooperative - EENT ENT: Present: hearing grossly normal - Neck Neck: Present: normal ROM - Respiratory Respiratory: bilateral: CTA - Cardiovascular Rhythm: regular Heart sounds: normal: S1, S2 - Integumentary Integumentary: Present: normal turgor - Musculoskeletal Musculoskeletal: Present: gait normal - Psychiatric Psychiatric: Present: A&O x's 3, appropriate affect, intact judgment & insight - Additional findings Additional findings: Breast Exam: BRA: 44DD Inspection: Bilateral grade 2/3 ptosis Palpation: Right breast: Multi-positional exam no dominant masses or nodules of concern, the fibroadenoma is not palpable Right axilla: No adenopathy of concern Left breast: No dominant masses or nodules of concern on multi-positional exam Left axilla: No adenopathy of concern Assessment and Plan Assessment: Impression: Right breast fibroadenoma biopsy-proven non palpable Fibrocystic breast changes bilateral mammogram 06-29-24 report pending Plan: Await results of bilateral mammogram from 06 29 24 if this is BI-RADS 2 then Repeat bilateral mammogram in one year, May 2025 with follow up at that time Patient to follow up sooner any questions or concerns CC: Dr. Partida
== END ==
LOC: WWCWWP 13:11
PROVIDERS: ATTEND Surgery
DX: D24.1 Benign neoplasm of right breast (principal); N60.11 Diffuse cystic mastopathy of right breast